=== PATIENT | male | born 1965 | race Caucasian/White ===

== ENCOUNTER 2018-05-03 10:32 | Emergency (ER) | payer BC, SELFPAY ==
[2018-05-03] VITALS (17 sets, daily range): BP systolic 126–144; BP diastolic 40–80; PULSE 48–68; RESP 9–22; TEMP 36.6–36.7; O2SAT 95–99
--- NOTE | 2018-05-03 11:04 | DI.REPORT_ITS ---
SYMPTOM/DIAGNOSIS: BLOATING DISTENSION FLAT AND UPRIGHT VIEWS ABDOMEN: There is gas scattered in small and large bowel without evidence of dilatation. There is no gastric dilatation. There is no evidence of free air. The visualized portions of the lung bases appear clear. IMPRESSION: No acute abnormality.
--- NOTE | 2018-05-03 11:04 | ED.GENADUL ---
Disposition Clinical Impression: Abdominal pain, not otherwise specified Disposition: HOME Condition: Good Instructions: Diabetic Gastroparesis (GEN) Additional Instructions: Return if you develop a fever, vomiting, worsening bloating, or any other concerns. As we discussed, may trial the use of Reglan, as needed for nausea and bloating. Please make an appointment to follow-up with Dr. Tobias in clinic in the next 2-3 weeks time. Return to the emergency department for any acute concerns. Continue all previously prescribed medications. Prescriptions: Metoclopramide HCl [Reglan] 10 mg PO BID PRN PRN #14 tablet PRN Reason: Nausea and bloating Medical Decision Making - Lab Data Laboratory Results - last 24 hr 05/03/18 05/03/18 11:20 11:20 WBC 5.47 RBC 4.41 L Hgb 13.8 Hct 40.5 MCV 91.8 MCH 31.3 MCHC 34.1 RDW 12.9 Plt Count 275 MPV 9.4 Immature Gran % 0.2 Neutrophils % 64.4 Lymphocytes % 26.1 Monocytes % 8.2 Eosinophils % 0.7 Basophils % 0.4 Absolute Neutrophils 3.52 Absolute Lymphocytes 1.43 Absolute Monocytes 0.45 Absolute Eosinophils 0.04 Absolute Basophils 0.02 Sodium 137 Potassium 4.2 Chloride 101 Carbon Dioxide 26.6 Anion Gap 9.4 BUN 18 Creatinine 1.13 Estimated GFR/1.73 m2 >= 60.00 Glucose 272 H Calcium 8.3 L Magnesium 1.7 L Total Bilirubin 0.7 AST 22 ALT 29 Alkaline Phosphatase 84 Troponin I < 0.02 Total Protein 7.0 Albumin 3.6 Lipase 77 Results reviewed for labs ordered during visit: Yes 05/03/18 11:06 Sinus bradycardia, rate of 53, QRS is narrow, there is no ST segment elevation present. - Radiology Data Radiology results: report reviewed, image reviewed - Medical Decision Making 52-year-old male presents with intermittent episodes of abdominal bloating and belching over weeks to months time. Not significantly worsened today but he felt that did merit evaluation. He arrives with temp of 36.7, blood pressure 143/57, soft abdomen. Hemoglobin A1c chronically elevated around 8. Differential diagnosis includes diabetic gastroparesis, ileus, partial small bowel obstruction. Screening laboratories, EKG, x-ray obtained and patient given Reglan for its promotility properties. Diagnostics: White blood cell count 5, hematocrit 40, platelets 275. Sodium 137, potassium 4.2, chloride 101, bicarb 26, BUN 18, creatinine 1.1, glucose 272, LFTs unremarkable, troponin negative, lipase 77 X-ray: No evidence of ileus or obstruction. No acute findings. Patient is improved. I will provide him a prescription for 10 Reglan tablets to be used if needed for nausea and bloating. Will ask him to follow-up with Dr. Tobias in clinic, & if symptoms persist, may consider referral to GI. Discussed home care as well as return precautions with the patient prior to discharge. History of Present Illness - General Stated complaint: GASTRO Time Seen by Provider: 05/03/18 10:35 Source: patient, RN notes reviewed Mode of arrival: ambulatory Limitations: no limitations - History of Present Illness Initial comments: 52-year-old male diabetic presents with months of intermittent episodes of abdominal distention, bloating, belching. Some mild dull, achy, nonradiating discomfort is mild to moderate today. He does not have vomiting, change to stool, fever. Seems to be brought on by food, slowly dissipates over time. No other exacerbating or of either defects. - Related Data Epinephrine [Epipen] 0.3 mg IM ONCE 01/01/13 Naproxen Sodium [Aleve] 1 cap PO PRN 01/01/13 [place], Insulin Disposable [Pen [place]] 1 each MC TID #100 ndl 09/10/13 Syringe-Needle,Insulin,0.5 ml [Ultra-Thin II] 1 each MC DAILY #100 syringe 09/10/13 Insulin Lispro [HumaLOG Syringe] 0 - 70 unit SQ DAILY #10 pen 04/08/15 Sildenafil [Viagra] 1 tab PO PRN #10 tab-cap 08/22/16 Lisinopril [Prinivil] 1 tab PO DAILY #90 tab 04/16/17 Simvastatin 1 tab PO DAILY #90 tab 04/16/17 Insulin Lispro [HumaLOG Syringe] 0 - 70 u SQ DAILY #5 pen 05/14/17 Blood Sugar Diagnostic [Freestyle Test Strips] 1 each MC DIRECTED #100 bottle 06/07/17 Omeprazole 20 mg PO DAILY #90 capsule. 09/03/17 Insulin Glargine [Lantus Vial] 70 unit SQ DAILY #3 vial 09/17/17 Furosemide [Lasix] 1 tab PO DAILY #90 tab 04/22/18 Metoclopramide HCl [Reglan] 10 mg PO BID PRN PRN #14 tablet 05/03/18 Allergies Allergy/AdvReac Type Severity Reaction Status Date / Time MIKEY WHITE FACED Allergy Intermediate HIVES, Uncoded 09/22/17 13:05 NUMBNESS, TINGLING Review of Systems Other: 8 systems reviewed, otherwise neg Past Medical History - Past Medical History Medical history: diabetes, hyperlipidemia, hypertension tetanus 2006 Surgical history: herniorraphy, other (knee) - Social History Alcohol use: occasionally Drug use: none General Exam - General Limitations: no limitations General appearance: alert, in no apparent distress - Head Head exam: Present: atraumatic, normocephalic - Eye Eye exam: Present: normal apperance - Neck Neck exam: Present: normal inspection, full ROM - Respiratory Respiratory exam: Present: normal lung sounds bilaterally. Absent: respiratory distress - Cardiovascular Cardiovascular Exam: Present: regular rate, normal rhythm - GI/Abdominal GI/Abdominal exam: Present: soft, tenderness, other (Mild tenderness without rebound or guarding. No tympany). Absent: distended - Extremities Exam Extremities exam: Present: normal inspection, normal capillary refill - Neurological Exam Neurological exam: Present: alert, oriented X3 - Psychiatric Psychiatric exam: Present: normal affect, normal mood - Skin Skin exam: Present: warm, dry, intact Course Vital Signs - 24 hr 05/03/18 10:38 Temperature 36.7 C Pulse 55 L Respiratory 14 Rate Blood Pressure 143/57 Pulse Oximetry 99
[2018-05-03] MEDS: Metoclopramide 10 MG TAB PO (11:25)
[2018-05-03 11:28] LABS: Abs Immature Grans 0.01 k/cumm (0.0-0.09); Absolute Basophil Count 0.02 k/cumm (0.0-0.2); Absolute Eosinophil Count 0.04 k/cumm (0.0-0.7); Absolute Lymphocyte Count 1.43 k/cumm (1.2-3.4); Absolute Monocyte Count 0.45 k/cumm (0.11-0.7); Absolute Neutrophil Count 3.52 k/cumm (1.2-6.7); Basophils % 0.4; Eosinophils % 0.7; HCT 40.5 % (40.0-50.0); HGB 13.8 g/dL (13.5-17.5); Immature Grans % 0.2; Lymphocytes % 26.1; Mean Corp. HGB Concentration 34.1 g/dL (32.0-36.0); Mean Corpuscular Hemoglobin 31.3 pg (27.0-33.0); Mean Corpuscular Volume 91.8 fL (80-95); Mean Platelet Volume 9.4 fL (8.0-11.0); Monocytes % 8.2; Neutrophils % 64.4; Platelet Count 275 x1000/uL (130-400); RBC 4.41 m/cumm (4.50-6.00); RBC Distribution Width 12.9 % (11.8-14.1); White Blood Cell Count 5.47 k/cumm (4.4-10.8)
--- NOTE | 2018-05-03 11:40 | DI.VRAD_ITS ---
EXAM: XR Abdomen, 2 Views EXAM DATE/TIME: 05/03/2018 11:05 AM CLINICAL HISTORY: 52 years old, male; Signs and symptoms; Bloating and other: Distention TECHNIQUE: Frontal view of the abdomen/pelvis with upright view of the abdomen. COMPARISON: CR - ABD FLAT UPRIGHT PA CHEST 2013-01-26 12:34 FINDINGS: Gastrointestinal tract: Bowel gas pattern is nonspecific. No ileus or obstruction. Intraperitoneal space: Normal. No free air. Bones/joints: Mild to moderate degenerative changes, lumbar spine. IMPRESSION: 1. No acute findings. 2. No obstruction. Dictated and Authenticated by: Clive Ponce MD. Ordering:LUIS ANGEL PETERS MD
[2018-05-03 11:46] LABS: ALT 29 U/L (12-78); AST 22 U/L (15-37); Albumin 3.6 g/dL (3.4-5.0); Alkaline Phosphatase 84 U/L (46-116); Anion Gap 9.4 mmol/L (3-11); BUN 18 mg/dL (7-18); Bilirubin, Total 0.7 mg/dL (0.2-1.0); CO2 26.6 mmol/L (21.0-32.0); CREATININE 1.13 mg/dL (0.70-1.30); Calcium 8.3 mg/dL (8.5-10.1); Chloride 101 mmol/L (98-107); Glucose 272 mg/dL (70-100); Lipase 77 U/L (73-393); Magnesium 1.7 mg/dL (1.8-2.4); Potassium 4.2 mmol/L (3.5-5.1); Sodium 137 mmol/L (136-145); Troponin I < 0.02 ng/mL (0.00-0.06)
== END 2018-05-03 12:30 | disposition home or self-care (01) ==
PROVIDERS: Emergency Provider Emergency Medicine; PCP Emergency Medicine
DX: R14.0 Abdominal distension (gaseous) (principal); R14.2 Eructation; R10.819 Abdominal tenderness, unspecified site; R00.1 Bradycardia, unspecified; E10.9 Type 1 diabetes mellitus without complications; I10 Essential (primary) hypertension
CPT/HCPCS: 36415; 80053; 83690; 93005; 99285; 74019; 83735; 84484; 85025; 93010; 99284

== ENCOUNTER → 2018-05-06 08:13 | Outpatient (CLI) | payer BC, SELFPAY ==
[2018-05-06 10:59] LABS: Anion Gap 9.2 mmol/L (3-11); BUN 14 mg/dL (7-18); CO2 25.8 mmol/L (21.0-32.0); CREATININE 1.08 mg/dL (0.70-1.30); Calcium 8.5 mg/dL (8.5-10.1); Chloride 104 mmol/L (98-107); Glucose 180 mg/dL (70-100); Potassium 4.5 mmol/L (3.5-5.1); Sodium 139 mmol/L (136-145)
[2018-05-06 11:37] LABS: Hemoglobin A1C 8.7 % (4.5-6.2)
== END ==
PROVIDERS: PCP Emergency Medicine; Visit Provider Emergency Medicine
DX: E10.39 Type 1 diabetes mellitus with other diabetic ophthalmic complication (principal)
CPT/HCPCS: 36415; 80048; 83036

== ENCOUNTER 2018-05-10 08:29 | Emergency (ER) | payer BC, SELFPAY ==
[2018-05-10 08:32] VITALS: BP 142/76; PULSE 50; RESP 16; TEMP 36.6; O2SAT 98
--- NOTE | 2018-05-10 08:37 | NUR.NOTE ---
Nursing Note: Naresh eyelids significantly swollen. Visual acuity: Naresh 20/25, Left 20/25, Right 20/30.
--- NOTE | 2018-05-10 08:42 | ED.GENADUL ---
Disposition Clinical Impression: Poison dipika Disposition: HOME Condition: Stable Instructions: Poison Dipika (ED) Additional Instructions: you can try over the counter steroid cream and also oral benadryl if symptoms significantly worsen or not improving next week you can start the prednisone prescription if you have severe eye pain or fevers or difficulty breathing return to the emergency department Prescriptions: PredniSONE [Deltasone] 20 mg PO DIRECTED 10 Days tab Medical Decision Making - Medical Decision Making pt here with what appears to be a rash typical of poison dipika on his arms and periorbital swelling given he wiped his face. No findings on exam to make orbital cellulitis or preseptal cellulitis indicated. will have him start benadryl and topical steroids, will give prescription for steroid taper if symptoms significantly worsen. Advised f/u with pcp and return precautions given - Differential Diagnosis poison dipika vs [place] vs [place] History of Present Illness - General Chief complaint: RashLesion Stated complaint: RASH Time Seen by Provider: 05/10/18 08:32 Source: patient Mode of arrival: ambulatory Limitations: no limitations - History of Present Illness Initial comments: 52 yo male comes in with concern for poison dipika. 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 He started to have itching and redness to both forearms and periorbital swelling yesterday which continued today so came here. Denies deep eye pain or fevers, sob. He has periorbital swelling without d/c and normal eye exam otherwise with full eomi without pain on movement and no deep eye pain, perrl. MD Complaint: periorbital swelling Onset/Timin -: days(s) Improves with: none Worsens with: none - Related Data Epinephrine [Epipen] 0.3 mg IM ONCE 01/01/13 Naproxen Sodium [Aleve] 1 cap PO PRN 01/01/13 [place], Insulin Disposable [Pen [place]] 1 each MC TID #100 ndl 09/10/13 Syringe-Needle,Insulin,0.5 ml [Ultra-Thin II] 1 each MC DAILY #100 syringe 09/10/13 Insulin Lispro [HumaLOG Syringe] 0 - 70 unit SQ DAILY #10 pen 04/08/15 Sildenafil [Viagra] 1 tab PO PRN #10 tab-cap 08/22/16 Lisinopril [Prinivil] 1 tab PO DAILY #90 tab 04/16/17 Simvastatin 1 tab PO DAILY #90 tab 04/16/17 Insulin Lispro [HumaLOG Syringe] 0 - 70 u SQ DAILY #5 pen 05/14/17 Blood Sugar Diagnostic [Freestyle Test Strips] 1 each MC DIRECTED #100 bottle 06/07/17 Omeprazole 20 mg PO DAILY #90 capsule. 09/03/17 Insulin Glargine [Lantus Vial] 70 unit SQ DAILY #3 vial 09/17/17 Furosemide [Lasix] 1 tab PO DAILY #90 tab 04/22/18 Metoclopramide HCl [Reglan] 10 mg PO BID PRN PRN #14 tablet 05/03/18 PredniSONE [Deltasone] 20 mg PO DIRECTED 10 Days tab 05/10/18 Allergies Allergy/AdvReac Type Severity Reaction Status Date / Time HORNET, WHITE FACED Allergy Intermediate HIVES, Uncoded 05/10/18 08:34 NUMBNESS, TINGLING Review of Systems Constitutional: denies: fever Eyes: denies: eye pain, vision change Respiratory: denies: shortness of breath Cardiovascular: denies: chest pain Gastrointestinal: denies: abdominal pain, nausea, vomiting Skin: rash Neurological: denies: headache Comment: All other systems reviewed and negative Past Medical History - Past Medical History Medical history: diabetes, hyperlipidemia, hypertension tetanus 2006 Surgical history: herniorraphy, other (knee) - Social History Alcohol use: occasionally Drug use: none General Exam - General Limitations: no limitations General appearance: alert, in no apparent distress - Head Head exam: Present: atraumatic - Eye Eye exam: Present: PERRL, EOMI, periorbital swelling. Absent: scleral icterus, conjunctival injection, periorbital tenderness - ENT ENT exam: Present: mucous membranes moist - Neck Neck exam: Present: normal inspection - Respiratory Respiratory exam: Absent: respiratory distress - Cardiovascular Cardiovascular Exam: Present: regular rate - Extremities Exam Extremities exam: Present: full ROM. Absent: tenderness - Neurological Exam Neurological exam: Present: alert, oriented X3, CN II-XII intact, normal gait - Psychiatric Psychiatric exam: Present: normal affect - Skin Skin exam: Present: warm, erythema, urticaria Course Vital Signs - 24 hr 05/10/18 08:32 Temperature 97.9 F Pulse 50 L Respiratory 16 Rate Blood Pressure 142/76 Pulse Oximetry 98
== END 2018-05-10 08:50 | disposition home or self-care (01) ==
PROVIDERS: Emergency Provider Emergency Medicine; PCP Emergency Medicine
DX: L25.5 Unspecified contact dermatitis due to plants, except food (principal)
CPT/HCPCS: 99283

== ENCOUNTER 2018-10-08 01:14 | Outpatient (CLI) | payer BC, SELFPAY ==
--- NOTE | 2018-10-08 07:01 | DI.US_ITS ---
SYMPTOM/DIAGNOSIS: EPIGASTRIC ABD PAIN, R10.13, R10.9 ABDOMEN ULTRASOUND: The exam was somewhat limited due to patient body habitus. The liver was suboptimally visualized due to necessity of scanning between the ribs. The liver is normal in size and echogenicity. No focal lesions are identified. There is no biliary dilatation. The gallbladder is unremarkable, without evidence of stones or wall thickening. The tail of the pancreas and IVC were not visualized. The aorta is normal in diameter. The spleen and kidneys are unremarkable. IMPRESSION: Somewhat limited exam. No abnormality is identified.
== END 2018-10-08 01:34 ==
PROVIDERS: PCP Emergency Medicine; Visit Provider Emergency Medicine
DX: R10.13 Epigastric pain (principal); R10.9 Unspecified abdominal pain
CPT/HCPCS: 76700

== ENCOUNTER 2018-11-10 08:00 | Outpatient (CLI) | payer BC, SELFPAY ==
[2018-11-10 14:06] LABS: HCT 39.8 % (40.0-50.0); HGB 13.6 g/dL (13.5-17.5); Mean Corp. HGB Concentration 34.2 g/dL (32.0-36.0); Mean Corpuscular Hemoglobin 31.1 pg (27.0-33.0); Mean Corpuscular Volume 91.1 fL (80-95); Mean Platelet Volume 10.3 fL (8.0-11.0); Platelet Count 328 x1000/uL (130-400); RBC 4.37 m/cumm (4.50-6.00); RBC Distribution Width 12.8 % (11.8-14.1)
[2018-11-10 14:20] LABS: ALT 37 U/L (12-78); AST 24 U/L (15-37); Albumin 3.6 g/dL (3.4-5.0); Alkaline Phosphatase 83 U/L (46-116); Amylase 57 U/L (25-115); Bilirubin, Direct 0.11 mg/dL (0.00-0.20); Bilirubin, Total 0.4 mg/dL (0.2-1.0); Lipase 124 U/L (73-393); TSH 2.34 uIU/mL (0.358-3.74); Total Protein 6.7 g/dL (6.4-8.2)
== END 2018-11-10 08:20 ==
PROVIDERS: PCP Emergency Medicine; Visit Provider Emergency Medicine
DX: R10.9 Unspecified abdominal pain (principal); E03.9 Hypothyroidism, unspecified
CPT/HCPCS: 36415; 80076; 83690; 85027; 82150; 84443

== ENCOUNTER 2019-09-19 14:30 | Emergency (ER) | payer BC, SELFPAY ==
[2019-09-19 14:41] VITALS: BP 149/60; PULSE 53; RESP 16; TEMP 36.6; O2SAT 97
--- NOTE | 2019-09-19 15:13 | W.ED.GENAD ---
Discharge Plan Disposition Patient Disposition: HOME Discharge Details Chief Complaint: Orthopedic Clinical Impression: Neck pain on left side Primary Care Provider: Clive Tobias ED Provider: Yayo Dasilva Home Meds and New Rx's Prescriptions: Continued Lantus U-100 Insulin 100 unit/mL solution 40 unit SC HS RF: 0 naproxen sodium [Aleve] 220 MG capsule 1 cap PO PRN RF: 0 (DME) insulin syringe-needle U-100 [Ultra-Thin II (Short) Ins Syr] 1 EACH syringe 1 ea Miscellaneous DAILY Qty: 100 RF: 6 sildenafil [Viagra] 100 MG tablet 1 tab PO PRN Qty: 10 RF: 5 (DME) blood-glucose meter [OneTouch Verio IQ Meter] misc See Dose Instructions .ROUTE .MEDSUPPLY Qty: 1 RF: 0 (DME) OneTouch Verio strip See Dose Instructions .ROUTE .MEDSUPPLY Qty: 400 RF: 4 (DME) lancets [OneTouch Delica Lancets] 30 gauge misc See Dose Instructions .ROUTE .MEDSUPPLY Qty: 400 RF: 4 omeprazole 20 mg capsule,delayed release(DR/EC) 20 mg PO DAILY Qty: 60 RF: 1 furosemide [Lasix] 40 mg tablet 40 mg PO DAILY Qty: 90 RF: 4 lisinopril 20 mg tablet 20 mg PO DAILY Qty: 90 RF: 3 simvastatin 40 mg tablet 40 mg PO DAILY Qty: 90 RF: 0 metoclopramide HCl [Reglan] 10 mg tablet 10 mg PO BID PRN PRN (Reason: Nausea and bloating) Qty: 30 RF: 1 insulin lispro [Humalog KwikPen Insulin] 100 unit/mL insulin pen 0 - 16 unit SC UD RF: 0 Discharge Instructions Instructions: Neck Pain (ED) Additional Instructions: Please take Aleve. Dose according to label - 1 tablet by mouth every 8-12 hours for pain. Rest your right arm and right neck. No heavy lifting until symptoms completely resolved. Please contact your primary care physician to arrange follow-up. Return to the ER for any worsening or new concerning symptoms. Referrals: Clive Tobias, [Primary Care Provider] - Discharge Data Discharge Date/Time-TO BE ENTERED AT DEPARTURE: 09/19/19 16:00 Medical Decision Making 15:25 --54-year-old male with history of type I diabetes, hypertension, here with intermittent right lateral upper back /shoulder pain over the past 1 week, worse with certain positions and movements of his right arm. Suspect musculoskeletal etiology but given multiple risk factors, consider ACS. Plan to check screening ECG and labs including troponin. --ECG was reviewed and interpreted by me: Sinus bradycardia 52 bpm, normal axis, no STEMI, nondiagnostic. 15:54 --Labs reviewed and nondiagnostic. Negative troponin. I suspect musculoskeletal etiology. Plan will be for patient to follow-up with his primary care physician. I have recommended he increase his dosing of Aleve and rest his arm over the next few days. Usual and customary discharge instructions were provided. HPI General Mode of arrival: ambulatory. Date/Time Provider Initiated Documentation: 09/19/19 14:47. Limitations to Documentation: no limitations. Information obtained by: patient. HPI Narrative: 54-year-old male with insulin-dependent diabetes here with chief complaint of right upper back/shoulder pain. Patient notes intermittent pain for the past 1 week. Pain does seem positional and increases when lifting his arm to perform overhead activities. Pain is moderate to severe when he experiences it. Pain feels sharp. No associated chest pain or shortness of breath. Pain improves with application of topical icy hot analgesic. 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 He also carries heavy loads on his right shoulder. He does not recall any specific traumatic injury. Related Data Home Medications Medication Instructions Recorded Confirmed naproxen sodium [Aleve] 1 cap PO PRN 01/01/13 09/19/19 insulin syringe-needle U-100 #100 syringe 09/10/13 04/10/19 [Ultra-Thin II (Short) Ins Syr] sildenafil [Viagra] 1 tab PO PRN #10 tab-cap 08/22/16 09/19/19 blood sugar diagnostic #400 each 12/26/18 04/10/19 blood-glucose meter #1 each 12/26/18 04/10/19 lancets 30 gauge #400 each 12/26/18 04/10/19 omeprazole 20 mg capsule,delayed 20 mg PO DAILY #60 cap 02/10/19 09/19/19 release insulin glargine 100 unit/mL 40 unit SC HS ml 04/10/19 09/19/19 subcutaneous solution furosemide 40 mg tablet 40 mg PO DAILY #90 tab 07/17/19 09/19/19 lisinopril 20 mg tablet 20 mg PO DAILY #90 tab 07/17/19 09/19/19 simvastatin 40 mg tablet 40 mg PO DAILY #90 tab 08/03/19 09/19/19 metoclopramide HCl 10 mg tablet 10 mg PO BID PRN PRN #30 tab 09/18/19 09/19/19 insulin lispro [Humalog KwikPen 0 - 16 unit SC UD 09/19/19 09/19/19 Insulin] Previous Rx's Medication Instructions Recorded blood sugar diagnostic #400 each 12/26/18 blood-glucose meter #1 each 12/26/18 lancets 30 gauge #400 each 12/26/18 omeprazole 20 mg capsule,delayed 20 mg PO DAILY #60 cap 02/10/19 release furosemide 40 mg tablet 40 mg PO DAILY #90 tab 07/17/19 lisinopril 20 mg tablet 20 mg PO DAILY #90 tab 07/17/19 simvastatin 40 mg tablet 40 mg PO DAILY #90 tab 08/03/19 metoclopramide HCl 10 mg tablet 10 mg PO BID PRN PRN #30 tab 09/18/19 Allergies Allergy/AdvReac Type Severity Reaction Status Date / Time HORNET, WHITE FACED Allergy Intermediate HIVES, Uncoded 09/19/19 14:45 NUMBNESS, TINGLING General Stated Complaint: Orthopedic CHUCK: 4 Review of Systems All systems reviewed & are unremarkable except as noted in HPI and below Constitutional Constitutional: Denies fever(s) Cardiovascular Cardiovascular: Denies chest pain and Denies dyspnea Respiratory Respiratory: Denies cough and Denies dyspnea Musculoskeletal Musculoskeletal: Reports as per HPI and Denies numbness Integumentary/Breasts Skin/Breast: Denies rash Neurologic Neurologic: Denies numbness [facility] Medical History Colon polyp, hyperplastic (Acute 04/18/16) repeat q 5years per [facility] Essential hypertension (Acute 08/04/13) Hyperlipidemia (Acute 02/05/13) Male erectile disorder (Acute 09/10/13) Non-proliferative diabetic retinopathy (Acute 01/04/14) 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 Brother Alcohol abuse Stroke Diabetes Hypertension Heart disease Hyperlipidemia Brother Hypertension Hyperlipidemia Maternal Grandfather , AGE 65 Lung cancer Paternal Grandfather , AGE 79 Stroke Maternal Grandmother , AGE 72 Diabetes Paternal Grandmother , AGE 98 No problems noted. Son No problems noted. Daughter No problems noted. Daughter Depression Social History Smoking/Tobacco Use Status: Never Alcohol Intake: current Alcohol Intake frequency: a few times a month Substance use type: does not use Household members: spouse Pets and animals: Yes Pets and animals: cat(s) Frequency: does not exercise Mounika/Rastafari: No preference Special mounika needs: No Do you feel safe at home: Yes Do you feel safe in your relationship?: Yes Exam Const General: cooperative and no acute distress HENMT Mouth: moist mucous membranes Eyes Conjunctivae: normal conjunctivae Sclera: normal sclerae Neck Neck: full ROM, trachea midline and supple Other: Minimal tenderness to deep palpation right posterior neck over trapezius Resp Auscultation: clear to auscultation bilaterally, no rales, no rhonchi and no wheezes Cardio Jugular venous pressure: no JVD Rate: regular rate and not tachycardic Rhythm: regular rhythm Heart Sounds: murmur systolic I/ Pulses: radial pulses present on the right 2+ GI Palpation: soft, not firm, no guarding, no masses, not rigid and nontender Back/Spine/Pelvis Cervical Spine: No cervical spinal tenderness Thoracic/Lumbar Spine: No thoracic spinal tenderness and No lumbar spinal tenderness Skin General skin exam: no rashes or lesions noted Neuro General: alert, awake, tone normal and other (Distal right upper extremity sensation and motor intact) Extrem Left upper extremity: shoulder/upper arm Details: abnormal ROM (Limited with with overhead extension, noted to be chronic) Psych Appearance: grossly normal Mental Status: mental status grossly normal Course Vital Signs Vital signs: Vital Signs Temperature 36.6 C 09/19/19 14:41 Pulse 53 L 09/19/19 14:41 Respiratory Rate 16 09/19/19 14:41 Blood Pressure 149/60 H 09/19/19 14:41 Pulse Oximetry 97 09/19/19 14:41 Temperature 36.6 C 09/19/19 14:41 Temperature Source Skin 09/19/19 14:41 Pulse 53 L 09/19/19 14:41 Respiratory Rate 16 09/19/19 14:41 Respiratory Effort 09/19/19 14:49 Blood Pressure 149/60 H 09/19/19 14:41 Blood Pressure Position Sitting 09/19/19 14:41 Pulse Oximetry 97 09/19/19 14:41 Oxygen Delivery Method Room Air 09/19/19 14:41 Oxygen Flow Rate 0 09/19/19 14:41 Comment 09/19/19 14:41
[2019-09-19 15:32] LABS: HCT 40.1 % (40.0-50.0); HGB 13.7 g/dL (13.5-17.5); Mean Corp. HGB Concentration 34.2 g/dL (32.0-36.0); Mean Corpuscular Hemoglobin 31.6 pg (27.0-33.0); Mean Corpuscular Volume 92.4 fL (80-95); Mean Platelet Volume 8.9 fL (8.0-11.0); Platelet Count 275 x1000/uL (130-400); RBC 4.34 m/cumm (4.50-6.00); RBC Distribution Width 12.9 % (11.8-14.1)
[2019-09-19 15:47] LABS: Anion Gap 8.5 mmol/L (3-11); BUN 17 mg/dL (7-18); CO2 28.5 mmol/L (21.0-32.0); CREATININE 0.93 mg/dL (0.70-1.30); Calcium 8.6 mg/dL (8.5-10.1); Chloride 106 mmol/L (98-107); Glucose 45 mg/dL (74-106); Potassium 3.6 mmol/L (3.5-5.1); Sodium 143 mmol/L (136-145); Troponin I < 0.05 ng/Ml (<0.06)
== END 2019-09-19 16:00 | disposition home or self-care (01) ==
PROVIDERS: Emergency Provider Student in an Organized Health Care Education/Training Program; PCP Emergency Medicine
DX: M54.2 Cervicalgia (principal); M25.511 Pain in right shoulder; I10 Essential (primary) hypertension; E10.39 Type 1 diabetes mellitus with other diabetic ophthalmic complication; E10.40 Type 1 diabetes mellitus with diabetic neuropathy, unspecified
CPT/HCPCS: 36415; 80048; 85027; 93005; 99283; 84484; 93010

== ENCOUNTER 2020-02-12 13:33 | Emergency (ER) | payer BC, SELFPAY ==
[2020-02-12 13:37] VITALS: BP 148/69; PULSE 66; RESP 16; TEMP 36.3; O2SAT 97
--- NOTE | 2020-02-12 14:13 | ED.GENADUL_ITS ---
Discharge Plan Disposition Patient Disposition: HOME Condition: Stable Discharge Details Chief Complaint: Abd Prob Clinical Impression: Abdominal pain, epigastric, Periumbilical hernia Primary Care Provider: Clive Tobias ED Provider: Eri Deutsch Home Meds and New Rx's Prescriptions: New sucralfate [Carafate] 1 gram tablet 1 gm PO TID Qty: 21 RF: 0 Continued (DME) insulin syringe-needle U-100 [Ultra-Thin II (Short) Ins Syr] 1 EACH syringe 1 ea Miscellaneous DAILY Qty: 100 RF: 6 sildenafil [Viagra] 100 MG tablet 1 tab PO PRN Qty: 10 RF: 5 (DME) blood-glucose meter [PicPrizesTouch Verio IQ Meter] misc See Dose Instructions .ROUTE .MEDSUPPLY Qty: 1 RF: 0 (DME) lancets [OneTouch Delica Lancets] 30 gauge misc See Dose Instructions .ROUTE .MEDSUPPLY Qty: 400 RF: 4 furosemide [Lasix] 40 mg tablet 40 mg PO DAILY Qty: 90 RF: 4 lisinopril 20 mg tablet 20 mg PO DAILY Qty: 90 RF: 3 Lantus U-100 Insulin 100 unit/mL solution 40 unit SC HS Qty: 30 RF: 3 omeprazole 20 mg capsule,delayed release(DR/EC) 20 mg PO DAILY Qty: 90 RF: 1 (DME) blood sugar diagnostic [OneTouch Verio test strips] Strip See Dose Instructions .ROUTE .MEDSUPPLY Qty: 400 RF: 4 simvastatin 40 mg tablet 40 mg PO DAILY Qty: 90 RF: 3 insulin lispro [Humalog KwikPen Insulin] 100 unit/mL insulin pen 0 - 16 unit SC UD RF: 0 Discontinued naproxen sodium [Aleve] 220 MG capsule 1 cap PO PRN RF: 0 Discharge Instructions Instructions: Epigastric Pain (ED) Additional Instructions: Continue your daily omeprazole. Use Carafate in addition to omeprazole as discussed for possible gastritis or stomach ulcer. Follow-up with surgeon for gastric concerns as well as periumbilical hernia concern. Please restart your daily aspirin. Please fill and restart your blood pressure medication Have outpatient stress test as discussed. We were able to make you an appointment for 15 February at 215 for a stress test. Return immediately for difficulty breathing associated with chest pain, shortness of breath, epigastric pain, dizziness, weakness, sweating, nausea or alarming symptoms as discussed. Return for abdominal pain which is worsening or alarming as discussed. Recheck with PCP. Return for any worsening or concerns if needed sooner Referrals: Michelle Booth MD [ [facility] STAFF PHYSICIAN] - Discharge Data Discharge Date/Time-TO BE ENTERED AT DEPARTURE: 02/12/20 15:51 Medical Decision Making <SAMMY Bernal - Last Filed: 02/12/20 16:05> This is a 54-year-old patient presenting to the emergency room for complaints of intermittent abdominal pain. Patient reports that for several years to months he has had mild intermittent abdominal pain. Patient does report pain is noted in the periumbilical and epigastric areas. Patient reports in the last 2 weeks pain has been more frequent. Noting pain daily. Patient does report today he is pain-free and feeling improved. Patient denies shortness of breath, difficulty breathing or chest pain at this time. Patient denies diaphoresis, dizziness, nausea, vomiting, headaches associated. Patient reports he notes epigastric pain early immediately after eating for the last 2 weeks. Patient does take omeprazole. Patient points to his periumbilical area has an area of swelling he has noted intermittently which can be associated with mild discomfort. Patient concerned with the possibility of hernia. Denies any bowel change or urinary difficulty. Patient also reports mild exacerbation component of pain when exerting himself yesterday. Specifically he reports he was carrying something heavy up a hill and he noted very mild shortness of breath and epigastric discomfort. Patient denied associated chest pain, diaphoresis or dizziness. patient reports pain relieved after resting. Patient denies back pain. Patient does report sensation of abdominal bloating in the last several months. Patient did speak with his PCP regarding the symptoms on a telemetry visit 1 month ago. They did discuss outpatient follow-up with GI and consideration of CT scan. Patient reports due to increasing pain frequency in the last 2 weeks he was seeking evaluation at his 's recommendation. Patient again at this time is pain-free. Patient does report he is been noncompliant with his blood pressure medications for the last 5 days. He does have a prescription at the pharmacy which she has not yet filled. Patient does report daily use of Naprosyn for the last 2 years. On exam patient is a well-appearing nontoxic mildly overweight patient. Vital signs revealed mild hypertension at 148/69. Afebrile, no increase in respiratory effort or tachypnea noted. O2 saturations 97%. Patient is pain- free at this time. Patient's breath sounds are clear diffusely. Patient has a subtle systolic murmur present. Patient has a very benign abdominal exam. No focal tenderness. A small periumbilical defect is present consistent with umbilical hernia with no obvious protrusion or incarceration at this time. Nontender. Differential diagnosis for this patient includes epigastric pain after eating concern for possible gastritis or gastric ulcer, umbilical hernia, hiatal hernia. patient has clear description of pain after eating. Patient does report a reflux history. Patient is currently taking omeprazole. We will plan to place patient on follow-up list with surgery for concern of possible gas tritis, PUD and umbilical hernia. Will recommend continuation of omeprazole. Will add Carafate. patient agrees with plan of outpatient follow-up. Did discuss alarming signs and symptoms of hernia for which patient should have immediate return. Patient is agreeable to this plan of care. Patient clearly presents to the emergency room for concern of umbilical hernia concern today however differential diagnosis also includes atypical anginal presentation as he is a type I diabetic has mild hypertension, no history of hyperlipidemia, previous PCP put patient on hyper lipidemia medications due to his history of diabetes. We will plan to check EKG. Patient is pain-free at this time, in no apparent distress, has no difficulty breathing, complaints of chest pain or shortness of breath today. patient has nothing to indicate acute ACS at this time. Patient reports he has been able to preform exertional activities without difficulty or discontinuation of activity. However given patient's description of mild shortness of breath with exertion uphill associated with mild epigastric discomfort must consider angina as a possible etiology although less likely etiology of his complaints given his history. Patient has been noncompliant with his hypertensive medications. I did recommend he restart these. Patient does report he stopped taking his baby aspirin which has been previously recommended to him. I recommended he restart aspirin daily. I did recommend stress testing as patient has not had stress testing in the past. Will order outpatient stress test to be followed up with his PCP. EKG reviewed with Dr. Dasilva. No acute change noted. Please see his interpretation of EKG. Nothing to indicate ischemia at this time. Patient is mildly bradycardic. Patient reports he has been bradycardic in the past, this is known to him and this is his baseline. Again patient has no ACS symptoms at this time. Patient giving very strict return precautions. Patient reports his understanding and agrees with this plan of care. We will defer any CT imaging of patient's abdomen at this time as he has benign abdominal exam. Dr. Yayo Dasilva also evaluated the patient at the bedside. Discussed his symptoms. Did bedside ultrasound which was somewhat limited. Please see his note. Strict return precautions discussed. Patient agrees with outpatient follow-up plan of care. Patient reports his understanding of plan of care. The patient was stable and requested discharge. Prior to discharge, my usual and customary return precautions were reviewed with the patient - this included follow-up instructions and reasons to return to the Emergency Department if conditions worsens, does not improve as expected, or other new concerns arise. <Yayo Dasilva MD - Last Filed: 02/19/20 14:51> Patient seen, examined, and discussed with SAMMY Perez. Small umbilical muscular wall defect with no current herniation. I did review prior abdominal ultrasound dated 10/08/2018 where abdominal aorta was noted to be normal. I agree with treatment plan as discussed/documented. Suspect intermittent umbilical hernia. Will refer to general surgery. I did speak with the patient's PCP who is in agreement with surgical follow-up. ECG Data Attestation: I personally reviewed and interpreted this ECG (s) as follows: (Sinus bradycardia 51 bpm, normal axis, no ischemic findings, nondiagnostic with no significant change compared to 05/03/2018) Prior ECG tracings: available for review HPI <SAMMY Bernal - Last Filed: 02/12/20 16:05> General Date/Time Provider Initiated Documentation: 02/12/20 13:35 . HPI Narrative: Is a 54-year-old patient presenting to the emergency room for complaints of intermittent abdominal pain. Patient reports several months of abdominal pain. Patient reports in the last 2 weeks more frequent and slightly more notable abdominal pain. Patient reports at this time he is pain-free. Patient reports the pain is worse with heavy exertion. 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 Patient does note that when he has increased abdominal pain he does note some shortness of breath. Patient denies headache or dizziness. Patient denies fever or chills. Patient denies bowel changes, diarrhea or constipation. Well formed bowel movements. Patient denies dysuria, urgency or frequency of urination. Denies hematuria. Patient denies associated back pain. Patient describes pain as periumbilical with a small area of intermittent swelling noted which he believes is likely due to hernia. Patient also describes some epigastric discomfort. Patient does currently take omeprazole however he did try to discontinue his omeprazole and noted a significant rebound reflux then begin taking his medication again. Of note patient does have Naprosyn listed on his daily medications which he reports has been taking twice daily for years for joint pain. Patient is a type I diabetic. Compliant with his daily medications. Has spoken with his PCP regarding his complaints. PCP did recommend CT scan. Patient did have a telemetry visit with his PCP approximately 1 month ago and they discussed having a CT scan. Patient seeking evaluation due to complaints of moderate pain and has noted pain for the last 2 weeks. Patient does report some postprandial pain for the last few weeks. He does report this intermittently for several months occurring in waves, will resolve for some time then returns. Patient denies any pain today. Does report feeling improved at this time. Related Data Home Medications Medication Instructions Recorded Confirmed insulin syringe-needle U-100 #100 syringe 09/10/13 04/10/19 [Ultra-Thin II (Short) Ins Syr] sildenafil [Viagra] 1 tab PO PRN #10 tab-cap 08/22/16 02/12/20 blood-glucose meter #1 each 12/26/18 04/10/19 lancets 30 gauge #400 each 12/26/18 04/10/19 furosemide 40 mg tablet 40 mg PO DAILY #90 tab 07/17/19 02/12/20 lisinopril 20 mg tablet 20 mg PO DAILY #90 tab 07/17/19 02/12/20 insulin lispro [Humalog KwikPen 0 - 16 unit SC UD 09/19/19 02/12/20 Insulin] insulin glargine 100 unit/mL 40 unit SC HS #30 ml 10/23/19 02/12/20 subcutaneous solution omeprazole 20 mg capsule,delayed 20 mg PO DAILY #90 cap 11/05/19 02/12/20 release blood sugar diagnostic #400 each 01/08/20 simvastatin 40 mg tablet 40 mg PO DAILY #90 tab 02/10/20 02/12/20 sucralfate [Carafate] 1 gm PO TID #21 tab 02/12/20 Previous Rx's Medication Instructions Recorded blood-glucose meter #1 each 12/26/18 lancets 30 gauge #400 each 12/26/18 furosemide 40 mg tablet 40 mg PO DAILY #90 tab 07/17/19 lisinopril 20 mg tablet 20 mg PO DAILY #90 tab 07/17/19 insulin glargine 100 unit/mL 40 unit SC HS #30 ml 10/23/19 subcutaneous solution omeprazole 20 mg capsule,delayed 20 mg PO DAILY #90 cap 11/05/19 release blood sugar diagnostic #400 each 01/08/20 simvastatin 40 mg tablet 40 mg PO DAILY #90 tab 02/10/20 sucralfate [Carafate] 1 gm PO TID #21 tab 02/12/20 Allergies Allergy/AdvReac Type Severity Reaction Status Date / Time HORNET, WHITE FACED Allergy Intermediate HIVES, Uncoded 02/12/20 13:42 NUMBNESS, TINGLING General Stated Complaint: Abd Prob CHUCK: 3 Review of Systems <SAMMY Bernal - Last Filed: 02/12/20 16:05> All systems reviewed & are unremarkable except as noted in HPI and below PFSH <SAMMY Bernal - Last Filed: 02/12/20 16:05> Medical History Colon polyp, hyperplastic (Acute 04/18/16) repeat q 5years per [facility] [place] Essential hypertension (Acute 08/04/13) Hyperlipidemia (Acute 02/05/13) Male erectile disorder (Acute 09/10/13) Non-proliferative diabetic retinopathy (Acute 01/04/14) 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 Well hydrated. Alert and oriented. EYES: General normal appearance. Alignment normal. Eyelids normal. Conjunctiva normal. Sclera normal. PERRL. NECK: Normal visual inspection. FROM. No lymphadenopathy. Trachea midline. No Midline tenderness. CHEST: Normal insepection of the chest. RESP: Normal respiratory effort. Speaking full sentences. No cough. No wheezing. No retractions. Clear to auscaltation. Breath sound equal and present bilaterally. CARDIO: No JVD. Normal PMI. Regular Rate. Regular Rhythm. Normal peripheral pulses. Subtle mid systolic murmur noted. GI: Normal inspection of abdomen. No distension. Soft. Nontender. Bowel sounds present in all 4 quadrants. No rebound. No gaurding. Patient has a small umbilical defect palpable. Nontender at this time. MUSCULOSKELETAL: Normal Gait. FROM of all extremities. Distal neurovascularly intact. Sensation intact distally. SKIN: Normal. Dry. No rashes. NEURO: Alert and awake. Speech clear. PSYCH: Normal affect. Cooperative. Course <SAMMY Bernal - Last Filed: 02/12/20 16:05> Vital Signs Vital signs: Vital Signs Temperature 36.3 C L 02/12/20 13:37 Pulse 66 02/12/20 13:37 Respiratory Rate 16 02/12/20 13:37 Blood Pressure 148/69 H 02/12/20 13:37 Pulse Oximetry 97 02/12/20 13:37 Temperature 36.3 C L 02/12/20 13:37 Temperature Source Skin 02/12/20 13:37 Pulse 66 02/12/20 13:37 Respiratory Rate 16 02/12/20 13:37 Respiratory Effort 02/12/20 13:41 Blood Pressure 148/69 H 02/12/20 13:37 Blood Pressure Position Sitting 02/12/20 13:37 Pulse Oximetry 97 02/12/20 13:37 Oxygen Delivery Method Room Air 02/12/20 13:37 Oxygen Flow Rate 0 02/12/20 13:37 Pain Level 5 02/12/20 14:06
[2020-02-12 15:52] VITALS: BP 148/69; PULSE 66; RESP 16; TEMP 36.3; O2SAT 97
--- NOTE | 2020-02-12 23:27 | NUR.NOTE ---
Nursing Note: SENT REFERAL TO [facility] SURG[facility] 02/12/20
== END 2020-02-12 15:51 | disposition home or self-care (01) ==
PROVIDERS: Emergency Provider Physician Assistant; PCP Emergency Medicine
DX: K42.9 Umbilical hernia without obstruction or gangrene (principal); R10.13 Epigastric pain; I10 Essential (primary) hypertension; Z79.1 Long term (current) use of non-steroidal anti-inflammatories (NSAID); E10.9 Type 1 diabetes mellitus without complications
CPT/HCPCS: 93005; 99283; 93010; 99284

== ENCOUNTER 2020-02-23 01:37 | Outpatient (CLI) | payer BC, SELFPAY ==
--- NOTE | 2020-02-23 11:00 | ETT_ITS ---
APPROVED REPORT Exam: Exercise Treadmill Patient Location: Out-Patient Room/Bed: Stress Nurse: Nena Aguirre RN BMI: 34.29 Baseline Rhythm: First Degree Heart Block--VA 0.21, Abnormal R wave Progression--Early Transition. Indications: Patient testing today for further risk stratification. He reports SOB with exertion, no other associated symptoms. Medical History Medical History: GERD. Cardiac Medications: Furosemide, Lisinopril, Simvastatin, Sildenafil. Allergies: Hornets. Cardiac Risk Factors: FHX of CAD, HTN, Diabetes. Previous Cardiac Procedures: None. Pretest Chest Pain Characteristics: None Exercise History: Physically active Physical Disabilities: None Lung Sounds: Clear to auscultation Heart Sounds: Regular Stress Test Details Test: Exercise stress testing was performed using a Vincenzo protocol. Rest Stress HR Resting HR Supine: 56 bpm Max Heart Rate (APMHR): 164 bpm Resting HR Standin bpm Target HR (85% APMHR): 139 bpm Max HR Achieved: 174 bpm % of APMHR: 106 HR response to stress: Normal HR response to stress Comment: Recovery heart rates remained in the 90's at 18 minutes of recovery. BP Resting BP Supine: 178/80 mmHg Resting BP Standin/82 mmHg Max BP: 240/72 mmHg BP response to stress: Abnormal hypertensive response to stress. ECG Resting ECG: First Degree Heart Block--VA 0.21, Abnormal R wave Progression--Early Transition. Stress ECG: Sinus Tachycardia ST Change: Moderately positive Recovery ST Change: Downsloping ST depression Lead(s): II, III, aVF, V3, V4, V5, V6 Recovery Arrhythmia: None Clinical Reason for Termination: Fatigue Stress Symptoms: None Exercise duration: 9 min13 sec Highest Stage Reached: Stage 4: 4.2 mph at 16% grade. Exercise capacity: 10.50 METs Functional Capacity: Above average capacity Stress ECG Conclusion 1. Patient exercised on the Vincenzo protocol and completed a workload of 10.5 METS. He achieved greate r than 100% of predicted heart rate for age 2. Normal heart rate response to exercise 3. Hypertensive blood pressure response to exercise 4. Electrocardiographically consistent with myocardial ischemia. There was approximately 2 to [address] depression noted in the inferior and anterolateral leads which in recovery became downsloping. The EKG changes in recovery gradually improved by iminute 10 but did not really return to baseline 5. There were no significant dysrhythmias 6. Shepherd treadmill score is -3.5, moderate risk Stress Test Summary STAGE Time (mins) Speed (mph) Grade (%) HR BP SYMPTOMS METS Supine 56 178/80 Standing 63 180/82 1 3 1.7 10 124 190/90 4.6 2 6 2.5 12 150 196/90 7 3 9 3.4 14 169 10.2 1 min recovery 148 218/70 3 min recovery 107 240/72 6 min recovery 99 220/74 9 min recovery 96 188/78 12 min recovery 91 176/80 15 min recovery 94 168/82 18 min recovery 92 170/80
== END 2020-02-23 01:57 ==
PROVIDERS: PCP Emergency Medicine; Visit Provider Nurse Practitioner
DX: R06.02 Shortness of breath (principal); R53.83 Other fatigue; I10 Essential (primary) hypertension; K21.9 Gastro-esophageal reflux disease without esophagitis; Z82.49 Family history of ischemic heart disease and other diseases of the circulatory system
CPT/HCPCS: 93017

== ENCOUNTER 2020-04-02 07:20 | Emergency (ER) | payer BC, SELFPAY ==
[2020-04-02 07:26] VITALS: BP 158/81; PULSE 54; RESP 16; TEMP 36.7; O2SAT 97
--- NOTE | 2020-04-02 07:58 | ED.GENADUL_ITS ---
Discharge Plan Disposition Patient Disposition: HOME Condition: Good Discharge Details Chief Complaint: RashLesion Clinical Impression: Contact dermatitis, Poison dipika Primary Care Provider: Clive Tobias ED Provider: Brijesh Gastelum Home Meds and New Rx's Prescriptions: New prednisone 20 mg tablet 20 mg PO DAILY Qty: 42 RF: 0 hydrocortisone 2.5 % cream 1 applic TP BID PRNQty: 20 RF: 0 Continued (DME) insulin syringe-needle U-100 [Ultra-Thin II (Short) Ins Syr] 1 EACH syringe 1 ea Miscellaneous DAILY Qty: 100 RF: 6 sildenafil [Viagra] 100 MG tablet 1 tab PO PRN Qty: 10 RF: 5 (DME) blood-glucose meter [Curiouslyuch Verio IQ Meter] misc See Dose Instructions .ROUTE .MEDSUPPLY Qty: 1 RF: 0 (DME) lancets [AvidBiologicsTouch Delica Lancets] 30 gauge misc See Dose Instructions .ROUTE .MEDSUPPLY Qty: 400 RF: 4 furosemide [Lasix] 40 mg tablet 40 mg PO DAILY Qty: 90 RF: 4 lisinopril 20 mg tablet 20 mg PO DAILY Qty: 90 RF: 3 Lantus U-100 Insulin 100 unit/mL solution 40 unit SC HS Qty: 30 RF: 3 omeprazole 20 mg capsule,delayed release(DR/EC) 20 mg PO DAILY Qty: 90 RF: 1 (DME) OneTouch Verio test strips Strip See Dose Instructions .ROUTE .MEDSUPPLY Qty: 400 RF: 4 simvastatin 40 mg tablet 40 mg PO DAILY Qty: 90 RF: 3 insulin lispro [Humalog KwikPen Insulin] 100 unit/mL insulin pen 15 unit SC TID Qty: 15 RF: 12 sucralfate [Carafate] 1 gram tablet 1 gm PO TID Qty: 21 RF: 0 Discharge Instructions Instructions: Poison Dipika (ED) Additional Instructions: You have poison dipika related dermatitis. He will require steroids to get your symptoms better. Please take the steroid pill for 21 days as directed on the prescription. Use the topical steroid cream as an adjunct to your treatment on using small amounts words particularly bad. Do not use it all over your body for the entire rash. As we discussed together the steroids will certainly make your sugars higher and harder to control. Please do your very best to avoid any carbs, sugary foods, or foods with significant sugars in general while you are on the steroids. Additionally steroids can cause irritation to your stomach, please make sure that you are avoiding any spicy foods, ibuprofen, naproxen. If you notice any dark tarry stools please stop taking steroids immediately, would be very reasonable to take your prescribed Carafate or an cglq-dqr-tsteyth Pepto-Bismol or Maalox. If you notice any redness, fevers or chills this would be concerning for infection and return immediately for reevaluation. If you notice any worsening of your symptoms, or any new symptoms such as vomiting, diarrhea, fever, chills, shortness of breath, chest pain, numbness, weakness, or fainting , please return immediately to the emergency department for reevaluation. Please follow up with your primary care provider as soon as possible for reassessment and reevaluation. As always, it was a pleasure participating in your medical care today. Referrals: Clive Tobias, [Primary Care Provider] - Medical Decision Making This is a pleasant 54-year-old male with type 1 diabetes who presents today for dermatitis secondary to plant contact. 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 He did not wash off at that time, later he noticed a significant rash on his arms, worse on the right than the left, eventually it spread to his face where he had been rubbing his face. Over the last few days he has been taking some [id number]-[id number] creams, however these have not resolved the symptoms. They have slightly improved the itch that is all. He describes the rash as itching and irritating. He denies any new medications, antiepileptics, lesions in his mouth, or other complaints. He denies fever or chills. He denies any other symptoms at this time. Exam demonstrates mild rash over the majority of the patient's right upper extremity as well as rash present on the patient's left upper extremity with small amount noted over his face. No other concerning red flags of lesions in the mouth, negative Nikolsky sign. Signs and symptoms clinically consistent with contact dermatitis. Patient's ring was mobile on his left ring finger, did offer to remove it here, however he states that he would take it off at home as a precaution in case any swelling gets worse. Because of the notable surface area of dermatitis I do not feel that he would be a candidate for steroid cream as a primary treatment modality. We will give a 3-week tapered steroid dose per recommendations for poison dipika contact dermatitis. We will give a topical steroid only to be used sparingly in the areas of particular severity on the forearm. The patient has a type I diabetic and we had a long discussion about the importance of closely monitoring his sugars, avoiding carbs, sugary foods and sweets. Also discussed the importance of maintaining a mild bland diet and signs and symptoms to look for for gastric irritation from the steroids as well as the importance of avoiding NSAIDs. Discussed red flags for which she should be aware of to immediately return. I have extensively reviewed the treatment plan and discharge instructions with the patient. I have addressed all patient concerns at this time. The patient was made aware of what symptoms to monitor for that would warrant a return to the emergency department. Discussed the plan with the patient, they demonstrate verbal understanding and agreement with our assessment and plan at this time. HPI General Date/Time Provider Initiated Documentation: 04/02/20 07:58 . HPI Narrative: This is a pleasant 54-year-old male with type 1 diabetes who presents today for dermatitis secondary to plant contact. 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 He did not wash off at that time, later he noticed a significant ra sh on his arms, worse on the right than the left, eventually it spread to his face where he had been rubbing his face. Over the last few days he has been taking some ctwp-[id number] creams, however these have not resolved the symptoms. They have slightly improved the itch that is all. He describes the rash as itching and irritating. He denies any new medications, antiepileptics, lesions in his mouth, or other complaints. He denies fever or chills. He denies any other symptoms at this time. Review of systems is negative for nausea, vomiting, diarrhea, chest pain, shortness of breath, vision changes, numbness tingling or weakness, hematuria, hematochezia, or melena. Related Data Home Medications Medication Instructions Recorded Confirmed insulin syringe-needle U-100 #100 syringe 09/10/13 04/02/20 [Ultra-Thin II (Short) Ins Syr] sildenafil [Viagra] 1 tab PO PRN #10 tab-cap 08/22/16 04/02/20 blood-glucose meter #1 each 12/26/18 04/02/20 lancets 30 gauge #400 each 12/26/18 04/02/20 furosemide 40 mg tablet 40 mg PO DAILY #90 tab 07/17/19 04/02/20 lisinopril 20 mg tablet 20 mg PO DAILY #90 tab 07/17/19 04/02/20 insulin glargine 100 unit/mL 40 unit SC HS #30 ml 10/23/19 04/02/20 subcutaneous solution omeprazole 20 mg capsule,delayed 20 mg PO DAILY #90 cap 11/05/19 04/02/20 release blood sugar diagnostic #400 each 01/08/20 04/02/20 simvastatin 40 mg tablet 40 mg PO DAILY #90 tab 02/10/20 04/02/20 sucralfate [Carafate] 1 gm PO TID #21 tab 02/12/20 04/02/20 insulin lispro 100 unit/mL 15 unit SC TID #15 ml 03/16/20 04/02/20 subcutaneous pen hydrocortisone 1 applic TP BID PRN #20 gm 04/02/20 prednisone 20 mg PO DAILY #42 tab 04/02/20 Previous Rx's Medication Instructions Recorded blood-glucose meter #1 each 12/26/18 lancets 30 gauge #400 each 12/26/18 furosemide 40 mg tablet 40 mg PO DAILY #90 tab 07/17/19 lisinopril 20 mg tablet 20 mg PO DAILY #90 tab 07/17/19 insulin glargine 100 unit/mL 40 unit SC HS #30 ml 10/23/19 subcutaneous solution omeprazole 20 mg capsule,delayed 20 mg PO DAILY #90 cap 11/05/19 release blood sugar diagnostic #400 each 01/08/20 simvastatin 40 mg tablet 40 mg PO DAILY #90 tab 02/10/20 sucralfate [Carafate] 1 gm PO TID #21 tab 02/12/20 insulin lispro 100 unit/mL 15 unit SC TID #15 ml 03/16/20 subcutaneous pen hydrocortisone 1 applic TP BID PRN #20 gm 04/02/20 prednisone 20 mg PO DAILY #42 tab 04/02/20 Allergies Allergy/AdvReac Type Severity Reaction Status Date / Time CHAGO JENSEN FACED Allergy Intermediate HIVES, Uncoded 04/02/20 07:34 NUMBNESS, TINGLING General Stated Complaint: RashLesion CHUCK: 3 Review of Systems All systems reviewed & are unremarkable except as noted in HPI and below [facility] Medical History Colon polyp, hyperplastic (Acute 04/18/16) repeat q 5years per [facility] [place] Essential hypertension (Acute 08/04/13) Hyperlipidemia (Acute 02/05/13) Male erectile disorder (Acute 09/10/13) Non-proliferative diabetic retinopathy (Acute 01/04/14) Right shoulder pain (Acute) 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 Brother Alcohol abuse Stroke Diabetes Hypertension Heart disease Hyperlipidemia Brother Hypertension Hyperlipidemia Maternal Grandfather , AGE 65 Lung cancer Paternal Grandfather , AGE 79 Stroke Maternal Grandmother , AGE 72 Diabetes Paternal Grandmother , AGE 98 No problems noted. Son No problems noted. Daughter No problems noted. Daughter Depression Social History Smoking/Tobacco Use Status: Never Alcohol Intake: current Alcohol Intake frequency: a few times a week Substance use type: does not use Household members: spouse Pets and animals: Yes Pets and animals: cat(s) Frequency: does not exercise Mounika/Scientology: No preference Special mounika needs: No Do you feel safe at home: Yes Do you feel safe in your relationship?: Yes Exam Narrative Exam Narrative: 1.Const: Well-nourished, Well-developed, appearing stated age 2.Eyes: PERRL, no conjunctival injection, and symmetrical lids. 3.ENT: Atraumatic external nose and ears. Moist MM. Neck: Symmetric, trachea midline, No thyromegaly. 4.CVS: +S1/S2, No murmurs or gallops. Peripheral pulses 2+ and equal in all extremities. Brisk capillary refill in all extremities. 5.RESP: Unlabored respiratory effort. Clear to auscultation bilaterally. No wheezes rales or rhonchi 6.GI: Soft, Nontender/Nondistended, No hepatosplenomegaly. No guarding or rebound. 7.MSK: Normocephalic/Atraumatic, Extremities w/o deformity or ttp No cyanosis or clubbing, Normal movement of all extremities 8.Skin: Patient's skin on his arms, primarily the right arm demonstrates notable contact dermatitis clinically consistent with exposure to likely poison dipika. Mild weeping over the forearm in the area of exposure. No significant redness, no atypical asymmetric warmth, no evidence of cellulitis. Mild swelling in the right hand because of this, minimal swelling in the left hand. Patient does have a ring on his ring finger on the left hand, there is no evidence of vascular compromise. Ring is movable. A very minimal amount of a similar contact dermatitis is noted on the patient's face, no evidence of conjunctivitis, no significant rash on the chest back legs. Negative Nikolsky sign. No large vesicles or bulla. No palpable purpura. No oral lesions. No mucosal lesions. No evidence of severe cellulitis. No evidence of vaccine preventable rash. 9.Neuro: pediatrician/medical doctor II-XII grossly intact. Sensation grossly intact, no focal neurologic deficits. 10.Psych: (AAO) x3. Appropriate mood and affect Course Vital Signs Vital signs: Vital Signs Temperature 36.7 C 04/02/20 07:26 Pulse 54 L 04/02/20 07:26 Respiratory Rate 16 04/02/20 07:26 Blood Pressure 158/81 H 04/02/20 07:26 Pulse Oximetry 97 04/02/20 07:26 Temperature 36.7 C 04/02/20 07:26 Temperature Source Temporal Artery Scan 04/02/20 07:26 Pulse 54 L 04/02/20 07:26 Respiratory Rate 16 04/02/20 07:26 Respiratory Effort Non-Labored 04/02/20 07:32 Blood Pressure 158/81 H 04/02/20 07:26 Blood Pressure Position Sitting 04/02/20 07:26 Pulse Oximetry 97 04/02/20 07:26 Oxygen Delivery Method Room Air 04/02/20 07:26 Oxygen Flow Rate 0 04/02/20 07:26 Pain Level 3 04/02/20 07:26
[2020-04-02 08:10] VITALS: BP 158/81; PULSE 54; RESP 16; TEMP 36.7; O2SAT 97
== END 2020-04-02 08:10 | disposition home or self-care (01) ==
PROVIDERS: Emergency Provider Student in an Organized Health Care Education/Training Program; PCP Emergency Medicine
DX: L23.7 Allergic contact dermatitis due to plants, except food (principal); E10.3299 Type 1 diabetes mellitus with mild nonproliferative diabetic retinopathy without macular edema, unspecified eye; I10 Essential (primary) hypertension
CPT/HCPCS: 99283

== ENCOUNTER 2020-06-17 17:00 | Outpatient (CLI) | payer BC, SELFPAY ==
--- NOTE | 2020-06-17 17:00 | RT.EKG_ITS ---
APPROVED REPORT Exam: Resting ECG Patient Location: O HR:59 bpm ECG Measurements Heart Rate 59 AXIS AR 211 P 67 QRSd 75 QRS 35 QT 413 T 29 QTc 408 Conclusion Gender not entered, assumed to be male for purpose of ECG interpretation Sinus bradycardia...rate< 60 Prolonged AR interval...AR >210, V-rate 50- 90
== END 2020-06-17 17:20 ==
PROVIDERS: PCP Emergency Medicine; Visit Provider Emergency Medicine
DX: I10 Essential (primary) hypertension (principal); R00.1 Bradycardia, unspecified

== ENCOUNTER 2020-06-24 01:45 | Outpatient (CLI) | payer BC, SELFPAY ==
--- NOTE | 2020-06-27 11:39 | W.HOLTRPT ---
Date of service: 06/27/20 Time of Service: 11:39 Holter Monitor Report Referring Provider:: Ezio Tello MD Indications:: CAD Holter Monitor Note: Patient was monitored for a period of 1 day and 22 hours. Rhythm throughout was sinus. Average heart rate was 60 bpm. Minimum was 44 and maximum 97 There were 8 isolated premature ventricular contractions. There were a total of 66 premature atrial contractions. There was no atrial fibrillation, heart block, or pauses greater than 2 seconds
== END 2020-06-24 02:05 ==
PROVIDERS: PCP Emergency Medicine; Visit Provider Internal Medicine Cardiovascular Disease
DX: I25.10 Atherosclerotic heart disease of native coronary artery without angina pectoris (principal)
CPT/HCPCS: 93225

== ENCOUNTER 2020-06-27 08:56 | Outpatient (CLI) | payer BC, SELFPAY | END 2020-06-27 09:16 | PROVIDERS: PCP Emergency Medicine; Visit Provider Emergency Medicine | DX: I25.10 Atherosclerotic heart disease of native coronary artery without angina pectoris (principal); I49.1 Atrial premature depolarization; I49.3 Ventricular premature depolarization | CPT/HCPCS: 93226 ==

== ENCOUNTER 2020-07-19 01:17 | Outpatient (CLI) | payer BC, SELFPAY ==
--- NOTE | 2020-07-19 07:15 | DI.US_ITS ---
APPROVED REPORT EXAM: Comprehensive 2D, Doppler, and color-flow Echocardiogram Patient Location: Out-Patient Numerical Control Machine Tool Operator: Verito Rico RDCS (AE) Indications: Murmur, Hypertension Other Information Study Quality: Adequate Conclusion Normal left ventricular wall thickness and chamber size. Estimated ejection fraction is 55 to 60%. There are no segmental wall motion abnormalities Normal right ventricular size and systolic function Both atria are normal in size There are no structural valvular abnormalities Mild mitral regurgitation Trace to mild tricuspid regurgitation with normal estimated right ventricular systolic pressure Trace physiologic pulmonic regurgitation Wall motion Left Ventricle The left ventricle is normal size. The left ventricular systolic function is normal. The left ventric ular ejection fraction is within the normal range. There is normal left ventricular wall thickness. T here is normal LV segmental wall motion. There is no ventricular septal defect visualized. LVEF is 55 -60%. Right Ventricle The right ventricle is normal size. The right ventricular systolic function is normal. The RVSP is 26 .2 mmHg. Atria The left atrium size is normal. The right atrium size is normal. The interatrial septum is intact wit h no evidence for an atrial septal defect. Aortic Valve The aortic valve is normal in structure. Aortic valve is trileaflet. There is no aortic valvular sten osis. No aortic regurgitation is present. Mitral Valve The mitral valve is normal in structure. No evidence of mitral valve stenosis. Mild mitral regurgitat ion. Tricuspid Valve The tricuspid valve is normal in structure. There is no tricuspid valve stenosis. Trace to mild tricu spid regurgitation. Pulmonic Valve The pulmonary valve is normal in structure. There is no pulmonic valvular stenosis. Trace pulmonic re gurgitation. Great Vessels The aortic root is normal in size. The ascending aorta is mildly dilated. Aortic arch is normal in ca liber. IVC is normal in size and collapses >50% with inspiration. Pericardium There is no pericardial effusion. 2D Dimensions IVSD d PLAX 1.01 cm M: 0.6-1.2 LV Vol A2C d MOD 126.8 mL LVPW d PLAX 1.03 cm M: 0.6 - 1.2 LV Vol A4C d MOD 134.2 mL LVID d PLAX 5.77 cm M: 4.2 - 5.8 LA vol/ BSA A2C s A-L 27.5 mL/m2 LVDs 4.00 cm M: 2.5 - 4.0 LA vol/ BSA A4C s A-L 29.1 mL/m2 Ao Root d 3.23 cm M: 3.1 - 3.7 LA Vol/ BSA Biplane s A-L 30.6 mL/m2 RA Area A4C 14.98 cm2 LA Area A4C s MOD 23.14 cm2 RA Vol/ BSA A4C s A-L 15.1 mL/m2 LA Area A2C s MOD 20.82 cm2 Ao Asc Diam d 3.61 cm M: 2.6 - 3.4 LV EF A4C MOD 55.5 % LV EF Teichholz 56.6 % LV EF A2C MOD 59.1 % LVEF (Sandy's) 55.92 % M: 52 - 72 LV EF Biplane MOD 55.9 % LV Volume 93.97 mL M: 62 - 150 SV 74.19 mL LV Volume Index 39.15 mL/m2 M: 34 - 74 SV Index 30.90 mL/m2 LV Vol Biplane MOD 132.7 mL FS 30.05 % M-Mode TAPSE 3.00 cm (M/F) >1.7 LV Diastology MV E' medial 0.132 (>0.07 m/s) E/A Ratio 1.5 LV E/e MED 7.00 (<14) MV E Vmax 0.92 (0.4-1.3 m/s) MV E' lateral 0.136 (>0.1 m/s) MV A Vmax 0.60 (0.4-1.3 m/s) LV E/e LAT 6.80 (<14) MV E/A Ratio 1.48 MV E/E' medial 7.00 MV E/E' lateral 6.81 Aortic Valve LVOT Area 3.55 cm2 AoV Area Vmax 2.74 cm2 LVOT Vmax 1.27 m/s AoV Area/ BSA (Vmax) 1.14 cm2/m2 LVOT Mean Bhavin. 0.82 m/s ALDO Mean Bhavin. 2.50 cm2 LVOT Peak Grad 6.5 mmHg ALDO Mean Bhavin. Index 1.04 cm2/m2 LVOT Mean Grad 3.2 mmHg LVOT VTI 0.286 m LVOT Diam s 2.10 cm AoV Vmax 1.65 m/s Velocity Ratio 0.76 AoV Mean Bhavin. 1.16 m/s AoV Peak Grad 10.9 mmHg LVOT SV 101.64 mL AoV Mean Grad 6.1 mmHg AoV VTI 0.350 m AoV Area VTI 2.90 cm2 AoV Area/ BSA (VTI) 1.21 cm/m2 Mitral Valve MV DT 211 (160-240 msec) MV PHT 61 msec MV Area PHT 3.59 cm2 MV VTI 0.389 m MV Area VTI 2.61 (4.0-6.0 cm2) Pulmonary Valve PV Vmax 1.49 (0.5-1.5 m/s) RVOT Peak Gr. 3.26 mmHg PV Peak Grad 8.8 mmHg RVOT Mean Gr. 1.75 mmHg PV Mean Grad 4.1 mmHg RVOT VTI 0.195 m PV VTI 0.299 m RVOT Vmax 0.90 m/s Tricuspid Valve TR Peak Grad 23.1 mmHg TR Vmax 2.41 m/s RA Pressure 3.00 mmHg RVSP (TR) 26.2 mmHg
== END 2020-07-19 01:37 ==
PROVIDERS: PCP Emergency Medicine; Visit Provider Internal Medicine Cardiovascular Disease
DX: I10 Essential (primary) hypertension (principal); I08.1 Rheumatic disorders of both mitral and tricuspid valves
CPT/HCPCS: 93306

== ENCOUNTER 2020-08-10 04:54 | Outpatient (CLI) | payer BC, SELFPAY ==
[2020-08-10 13:01] LABS: Abs Immature Grans 0.01 10^3/uL (0.0-0.06); Absolute Basophil Count 0.04 10^3/uL (0.0-0.2); Absolute Eosinophil Count 0.15 10^3/uL (0.0-0.7); Absolute Lymphocyte Count 1.34 10^3/uL (1.2-3.4); Absolute Monocyte Count 0.43 10^3/uL (0.1-0.8); Basophils % 0.8; Eosinophils % 2.8; HCT 38.2 % (40.0-50.0); HGB 13.1 g/dL (13.5-17.5); Immature Grans % 0.2; Lymphocytes % 25.4; MCHC 34.3 % (32.0-36.0); MCV 90.5 fL (80-95); MPV 10.3 fL (8.0-11.0); Monocytes % 8.2; Neutrophils % 62.6; Nucleated RBC 0 %; Platelet Count 259 10^3/uL (130-400); RBC 4.22 10^6/uL (4.36-5.78); RDW 12.2 % (11.8-14.1); RDW-SD 40.5 fL; WBC 5.27 10^3/uL (4.4-10.8)
[2020-08-10 13:28] LABS: ALT 30 U/L (16-63); AST 21 U/L (15-37); Albumin 3.6 g/dL (3.4-5.0); Alkaline Phosphatase 81 U/L (46-116); Anion Gap 8.4 mmol/L (3-11); BUN 19 mg/dL (7-18); Bilirubin, Total 0.5 mg/dL (0.2-1.0); CO2 25.6 mmol/L (21.0-32.0); CREATININE 1.08 mg/dL (0.70-1.30); Calcium 8.4 mg/dL (8.5-10.1); Chloride 102 mmol/L (98-107); Glucose 243 mg/dL (74-106); Potassium 4.5 mmol/L (3.5-5.1); Sodium 136 mmol/L (136-145); TSH 2.77 uIU/mL (0.36-3.74); Total Protein 6.2 g/dL (6.4-8.2)
[2020-08-10 13:34] LABS: Hemoglobin A1C 8.2 % (<5.7)
[2020-08-10 14:45] LABS: Calculated LDL 76 mg/dL (<100); Cholesterol 132 mg/dL (<200); HDL Cholesterol 40 mg/dL (40-60); Magnesium 1.8 mg/dL (1.8-2.4); Triglyceride 83 mg/dL (<150)
[2020-08-12 09:34] LABS: PSA, Screening 0.8 ng/mL (0-3.5)
[2020-08-24 17:28] LABS: IgA 217 mg/dL (61-356); Interpretation See Comments; Tissue Transglutaminase IgA 3.8 U/mL (<4.0)
== END 2020-08-10 05:14 ==
PROVIDERS: PCP Emergency Medicine; Visit Provider Internal Medicine Cardiovascular Disease
DX: I10 Essential (primary) hypertension (principal); E10.39 Type 1 diabetes mellitus with other diabetic ophthalmic complication; R14.0 Abdominal distension (gaseous); K59.00 Constipation, unspecified; Z12.5 Encounter for screening for malignant neoplasm of prostate
CPT/HCPCS: 36415; 80048; 80053; 80061; 82784; 83516; 84153; 83036; 83735; 84443; 85025

== ENCOUNTER 2020-10-09 10:16 | Emergency (ER) | payer BC, SELFPAY ==
[2020-10-09 10:20] VITALS: BP 144/46; PULSE 59; RESP 18; TEMP 36.4; O2SAT 98
--- NOTE | 2020-10-09 10:41 | ED.GENADUL_ITS ---
Discharge Plan Disposition Patient Disposition: HOME Condition: Improving Discharge Details Clinical Impression: Strain of thoracic back region Primary Care Provider: Clive Tobias ED Provider: Latonia Munson Home Meds and New Rx's Prescriptions: New methocarbamol 500 mg tablet 500 mg PO Q6H PRN (Reason: muscle spasm) Qty: 14 RF: 0 lidocaine [Lidoderm] 5 % adhesive patch,medicated 1 patch TP DAILY PRN (Reason: pain) Qty: 15 RF: 0 naproxen [Naprosyn] 500 mg tablet 500 mg PO BID PRN (Reason: pain) Qty: 14 RF: 0 No Action aspirin [Adult Low Dose Aspirin] 81 mg tablet,delayed release (DR/EC) 81 mg PO DAILY RF: 0 amlodipine 10 mg tablet 10 mg PO DAILY Qty: 90 RF: 4 spironolactone 25 mg tablet 25 mg PO DAILY Qty: 90 RF: 3 rosuvastatin 20 mg tablet 20 mg PO DAILY Qty: 90 RF: 3 metoprolol succinate [Toprol XL] 25 mg tablet extended release 24 hr 25 mg PO DAILY Qty: 30 RF: 3 (DME) insulin syringe-needle U-100 [Ultra-Thin II (Short) Ins Syr] 1 EACH syringe 1 ea Miscellaneous DAILY Qty: 100 RF: 6 (DME) blood-glucose meter [OneTouch Verio IQ Meter] misc See Dose Instructions .ROUTE .MEDSUPPLY Qty: 1 RF: 0 (DME) lancets [OneTouch Delica Lancets] 30 gauge misc See Dose Instructions .ROUTE .MEDSUPPLY Qty: 400 RF: 4 (DME) OneTouch Verio test strips Strip See Dose Instructions .ROUTE .MEDSUPPLY Qty: 400 RF: 4 insulin lispro [Humalog KwikPen Insulin] 100 unit/mL insulin pen 15 unit SC TID Qty: 15 RF: 12 omeprazole 20 mg capsule,delayed release(DR/EC) 20 mg PO DAILY Qty: 90 RF: 1 lisinopril 20 mg tablet 20 mg PO DAILY Qty: 90 RF: 3 Lantus U-100 Insulin 100 unit/mL solution 40 unit SC HS Qty: 30 RF: 3 hydrocortisone 2.5 % cream 1 applic TP BID PRNQty: 20 RF: 0 Discharge Instructions Instructions: Thoracic Back Strain (ED) Additional Instructions: Alternate ice and heat to the affected area(s) several times daily for 20 minutes at a time. Take the anti-inflammatory, muscle relaxer and lidoderm patch as needed and directed for pain. Follow-up with your primary care doctor in 1 week. Return to the emergency department with any worsening or new concerning symptoms such as fever, chest pain, shortness of breath, extremity weakness or numbness. Discharge Data Discharge Date/Time-TO BE ENTERED AT DEPARTURE: 10/09/20 12:33 Discharge Physician: Latonia Munson Medical Decision Making 55-year-old male with a history of obesity, hypertension, hyperlipidemia, di abetes presents for mid back pain that is worse with movement of his upper extremity since yesterday. Pain worse since yesterday after helping move furniture. There is minimal tenderness to palpation of his mid lower thoracic and right thoracic paraspinal region but area appears normal to inspection without cellulitis, trauma or rash. He is neurovascular intact. His lungs are clear. His abdomen is soft and nontender. He has no focal deficits. Suspect most likely musculoskeletal etiology, however considering patient's age and comorbidities, will obtain a chest x-ray to rule out any acute disease. Will place Lidoderm patch and give a dose of ibuprofen. Do not see indication for labs or additional imaging at this time. Imaging reviewed and negative. Patient reassessed and he admits to relief of pain and feels good to go home. We will send with Lidoderm patch and muscle relaxers. Advised to follow up with the primary care doctor for re-evaluation. Usual and customary return precautions given prior to discharge. Medical Records Medical records reviewed: Yes I reviewed the patient's medical records. Imaging Data Radiologic Study: Radiologist's impression: XR Chest, 2 Views Exam date and time: 10/09/2020 11:23 AM Age: 55 years old Clinical indication: Patient HX: Mid back pain. R/O widened mediastinum TECHNIQUE: Imaging protocol: XR of the chest Views: 2 views. COMPARISON: CR CHEST 2 VIEWS PA,LAT 10/08/2016 9:24 AM FINDINGS: Lungs: Unremarkable. No consolidation. Pleural space: Unremarkable. No pleural effusion. No pneumothorax. Apical pleural thickening left greater than right is stable. Heart/Mediastinum: Unremarkable. No cardiomegaly. No widening of the mediastinum. Bones/joints: Unremarkable for age. IMPRESSION: No acute findings. HPI General Mode of arrival: ambulatory . Date/Time Provider Initiated Documentation: 10/09/20 10:16 . Limitations to Documentation: no limitations . Information obtained by: patient . HPI Narrative: Patient is a 55-year-old male with a history of obesity, hypertension, hyperlipidemia, diabetes who presents for mid back pain that is worse with movement of his arms since yesterday. Patient states the pain started in the middle the day but then became worse after helping his mom move furniture. He took Tylenol this morning without relief. He states the pain feels somewhat better at this time but is still worse with movement of his arms. He denies any worsening of pain with movement of his head. He denies any fever, cough, chest pain, shortness of breath, abdominal pain, leg pain, weakness or numbness in his arms. Related Data Home Medications Medication Instructions Recorded Confirmed insulin syringe-needle U-100 #100 syringe 09/10/13 07/26/20 [Ultra-Thin II (Short) Ins Syr] blood-glucose meter #1 each 12/26/18 07/26/20 lancets 30 gauge #400 each 12/26/18 07/26/20 blood sugar diagnostic #400 each 01/08/20 07/26/20 insulin lispro 100 unit/mL 15 unit SC TID #15 ml 03/16/20 10/09/20 subcutaneous pen hydrocortisone 1 applic TP BID PRN #20 gm 04/02/20 10/09/20 omeprazole 20 mg capsule,delayed 20 mg PO DAILY #90 cap 05/13/20 10/09/20 release metoprolol succinate 25 mg 25 mg PO DAILY #30 tab 06/17/20 10/09/20 tablet,extended release 24 hr lisinopril 20 mg tablet 20 mg PO DAILY #90 tab 07/19/20 10/09/20 aspirin 81 mg tablet,delayed 81 mg PO DAILY 07/26/20 10/09/20 release amlodipine 10 mg tablet 10 mg PO DAILY #90 tab 09/14/20 10/09/20 rosuvastatin 20 mg tablet 20 mg PO DAILY #90 tab 09/14/20 10/09/20 spironolactone 25 mg tablet 25 mg PO DAILY #90 tab 09/14/20 10/09/20 insulin glargine 100 unit/mL 40 unit SC HS #30 ml 09/19/20 10/09/20 subcutaneous solution lidocaine [Lidoderm] 1 patch TP DAILY PRN #15 each 10/09/20 methocarbamol 500 mg PO Q6H PRN #14 tab 10/09/20 naproxen [Naprosyn] 500 mg PO BID PRN #14 tab 10/09/20 Previous Rx's Medication Instructions Recorded blood-glucose meter #1 each 12/26/18 lancets 30 gauge #400 each 12/26/18 blood sugar diagnostic #400 each 01/08/20 insulin lispro 100 unit/mL 15 unit SC TID #15 ml 03/16/20 subcutaneous pen hydrocortisone 1 applic TP BID PRN #20 gm 04/02/20 omeprazole 20 mg capsule,delayed 20 mg PO DAILY #90 cap 05/13/20 release metoprolol succinate 25 mg 25 mg PO DAILY #30 tab 06/17/20 tablet,extended release 24 hr lisinopril 20 mg tablet 20 mg PO DAILY #90 tab 07/19/20 amlodipine 10 mg tablet 10 mg PO DAILY #90 tab 09/14/20 rosuvastatin 20 mg tablet 20 mg PO DAILY #90 tab 09/14/20 spironolactone 25 mg tablet 25 mg PO DAILY #90 tab 09/14/20 insulin glargine 100 unit/mL 40 unit SC HS #30 ml 09/19/20 subcutaneous solution lidocaine [Lidoderm] 1 patch TP DAILY PRN #15 each 10/09/20 methocarbamol 500 mg PO Q6H PRN #14 tab 10/09/20 naproxen [Naprosyn] 500 mg PO BID PRN #14 tab 10/09/20 Allergies Allergy/AdvReac Type Severity Reaction Status Date / Time HORNET, WHITE FACED Allergy Intermediate HIVES, Uncoded 10/09/20 10:24 NUMBNESS, TINGLING General Stated Complaint: Nk/Back Pain CHUCK: 3 Review of Systems All systems reviewed & are unremarkable except as noted in HPI and below Constitutional Constitutional: Reports as per HPI, Denies chills and Denies fever(s) Eyes Eyes: Denies blurry vision ENT Ears, Nose, Mouth, and Throat: Denies dizziness, Denies sore throat and Denies throat swelling Cardiovascular Cardiovascular: Denies chest pain and Denies dyspnea Respiratory Respiratory: Denies cough and Denies dyspnea Gastrointestinal Gastrointestinal: Denies abdominal pain, Denies diarrhea and Denies vomiting Genitourinary Genitourinary: Denies hematuria and Denies dysuria Musculoskeletal Musculoskeletal: Reports back pain and Denies numbness Integumentary/Breasts Skin/Breast: Denies lesions and Denies rash Neurologic Neurologic: Denies dizziness, Denies localized weakness and Denies numbness Allergic/Immunologic Allergic/Immunologic: Denies throat swelling [facility] Medical History Colon polyp, hyperplastic (04/18/16) repeat q 5years per [facility] Coronary artery disease Essential hypertension (08/04/13) Hyperlipidemia (02/05/13) Male erectile disorder (09/10/13) Non-proliferative diabetic retinopathy (01/04/14) Right shoulder pain 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 Son No problems noted. Daughter No problems noted. Daughter Depression Social History Smoking/Tobacco Use Status: Never Smoking risk assessment performed?: Yes Alcohol Intake: current Alcohol Intake frequency: a few times a week Drug use: Never Substance use type: does not use Caregiver/Support person: No Household members: spouse and children Housing: house Do you need help understanding health information?: Never Pets and animals: Yes Pets and animals: cat(s) Sexually active: Yes Do you think of yourself as: straight/heterosexual What is your relationship status?: How often do you talk on the phone with friends or family?: once per week How often do you get together with friends or relatives?: once per week How often do you attend oriental orthodox or restorationist services?: decline to answer Do you belong to any clubs or organized social groups?: decline to answer Panel score (0-1 are the most socially isolated patients): 1 Frequency: does not exercise Mounika/Latter-Day: No preference Special mounika needs: No Seatbelt use: always Drive intox or ride w/intox truck driver instructor: No Do you feel safe at home: Yes Do you feel safe in your relationship?: Yes Exam Const General: cooperative, healthy appearing and no acute distress HENMT Head: normal to inspection Face and sinus: normal facial exam Eyes General: appearance normal, both eyes and all related structures EOM: EOM intact bilaterally Neck Neck: normal visual inspection and No submandibular swelling Lymphatic: no lymphadenopathy noted Chest Chest: normal inspection of the chest and no tenderness Resp Effort & Inspection: normal respiratory effort and able to speak in complete sentences Auscultation: clear to auscultation bilaterally Cardio Rate: regular rate Rhythm: regular rhythm GI Inspection: normal to inspection Palpation: soft, not firm, not rigid and nontender Auscultation: normal bowel sounds Back/Spine/Pelvis Thoracic/Lumbar Spine: thoracic and lumbar spine normal to inspection Pelvis: no pain with anterior-posterior compression Back/spine/pelvis image: 1. Localized area of pain that is minimally reproducible with palpation but mainly reproducible with movement of his upper extremities. There is no erythema, ecchymosis, crepitus, rash or step-off. 2. There is some area of minimal tenderness below and medial to the right scapula within the thoracic paraspinal region. There is no erythema, ecchymosis, crepitus or rash. Skin General skin exam: no rashes or lesions noted Neuro General: patient alert, patient awake and patient oriented x3 Cognition: normal cognition Speech: speech normal Motor: muscle tone normal throughout Sensory Exam: no sensory deficits noted Extrem General: normal to inspection, full ROM, capillary refill normal, no calf tenderness bilaterally and no edema Psych Appearance: grossly normal Mental Status: mental status grossly normal Speech and Movement: speech and movement normal Affect: normal affect Course Vital Signs Vital signs: Vital Signs Temperature 97.5 F L 10/09/20 10:20 Pulse 59 L 10/09/20 10:20 Respiratory Rate 18 10/09/20 10:20 Blood Pressure 144/46 H 10/09/20 10:20 Pulse Oximetry 98 10/09/20 10:20 Temperature 97.5 F L 10/09/20 10:20 Temperature Source Skin 10/09/20 10:20 Pulse 59 L 10/09/20 10:20 Respiratory Rate 18 10/09/20 10:20 Respiratory Effort Non-Labored 10/09/20 10:27 Blood Pressure 144/46 H 10/09/20 10:20 Blood Pressure Position Sitting 10/09/20 10:20 Pulse Oximetry 98 10/09/20 10:20 Oxygen Delivery Method Room Air 10/09/20 10:20 Oxygen Flow Rate 0 10/09/20 10:20 Pain Level 10 10/09/20 10:20
[2020-10-09] MEDS: Ibuprofen 600 MG TAB PO (11:14)
[2020-10-09] MEDS: Lidocaine 5% Patch 1 PATCH TP (11:14)
--- NOTE | 2020-10-09 11:36 | DI.RAD_ITS ---
EXAM: XR CHEST 2V PA LATERAL CLINICAL HISTORY: mid back pain, r/o widened mediastinum, acute dz TECHNIQUE: 2D digital imaging was performed. COMPARISON: No exams were available for comparison FINDINGS: MEDIASTINUM: Normal. No widening of the mediastinum. HEART: Normal. PULMONARY VASCULATURE: Normal. LUNGS: Clear. PLEURAL SPACE: No pleural effusion or pneumothorax. BONE:Within normal limits for the patient's age. OTHER FINDINGS:Normal. IMPRESSION: No acute pulmonary findings. DATA REPOSITORY: RADIATION DOSE DELIVERED:
--- NOTE | 2020-10-09 11:50 | DI.VRAD_ITS ---
PROCEDURE INFORMATION: Exam: XR Chest, 2 Views Exam date and time: 10/09/2020 11:23 AM Age: 55 years old Clinical indication: Patient HX: Mid back pain. R/O widened mediastinum TECHNIQUE: Imaging protocol: XR of the chest Views: 2 views. COMPARISON: CR CHEST 2 VIEWS PA,LAT 10/08/2016 9:24 AM FINDINGS: Lungs: Unremarkable. No consolidation. Pleural space: Unremarkable. No pleural effusion. No pneumothorax. Apical pleural thickening left greater than right is stable. Heart/Mediastinum: Unremarkable. No cardiomegaly. No widening of the mediastinum. Bones/joints: Unremarkable for age. IMPRESSION: No acute findings. Dictated and Authenticated by: Jhonatan Hollins MD. Ordering:JENNY Lincoln MD
[2020-10-09 12:28] VITALS: BP 115/47; PULSE 56; RESP 18; TEMP 36.5; O2SAT 98
== END 2020-10-09 12:33 | disposition home or self-care (01) ==
PROVIDERS: Emergency Provider Physician Assistant; PCP Emergency Medicine
DX: S39.012A Strain of muscle, fascia and tendon of lower back, initial encounter (principal); X50.0XXA Overexertion from strenuous movement or load, initial encounter; I10 Essential (primary) hypertension; E10.9 Type 1 diabetes mellitus without complications
CPT/HCPCS: 99283; 71046

== ENCOUNTER 2020-11-25 02:38 | Outpatient (CLI) | payer BC, SELFPAY ==
[2020-11-26 14:08] LABS: COVID-19 RT-PCR UVMMC Result Negative (Negative)
== END 2020-11-25 02:39 | disposition home or self-care (01) ==
LOC: LBO 02:38
PROVIDERS: PCP Emergency Medicine; Visit Provider Emergency Medicine
DX: Z20.822 Contact with and (suspected) exposure to COVID-19 (principal)
CPT/HCPCS: U0003

== ENCOUNTER 2020-12-29 02:01 | Outpatient (CLI) | payer BC, SELFPAY ==
[2020-12-29 11:37] LABS: Anion Gap 7.6 mmol/L (3-11); BUN 18 mg/dL (7-18); CO2 29.4 mmol/L (21.0-32.0); CREATININE 1.2 mg/dL (0.70-1.30); Calcium 8.9 mg/dL (8.5-10.1); Calculated LDL 87 mg/dL (<100); Chloride 103 mmol/L (98-107); Cholesterol 143 mg/dL (<200); Glucose 188 mg/dL (74-106); HDL Cholesterol 48 mg/dL (40-60); Potassium 4.3 mmol/L (3.5-5.1); Sodium 140 mmol/L (136-145); Triglyceride 43 mg/dL (<150)
[2020-12-29 11:41] LABS: Hemoglobin A1C 7.8 % (<5.7)
== END 2020-12-29 02:02 | disposition home or self-care (01) ==
LOC: LOS 02:01
PROVIDERS: PCP Emergency Medicine; Visit Provider Emergency Medicine
DX: I10 Essential (primary) hypertension (principal); E78.5 Hyperlipidemia, unspecified; I25.10 Atherosclerotic heart disease of native coronary artery without angina pectoris; E11.9 Type 2 diabetes mellitus without complications
CPT/HCPCS: 36415; 80048; 80061; 83036

== ENCOUNTER 2021-06-08 13:36 | Outpatient (CLI) | payer BC, SELFPAY ==
[2021-06-08 12:52] LABS: Anion Gap 8.9 mmol/L (3-11); BUN 13 mg/dL (7-18); CO2 25.1 mmol/L (21.0-32.0); Calcium 8.5 mg/dL (8.5-10.1); Chloride 108 mmol/L (98-107); Glucose 144 mg/dL (74-106); Sodium 142 mmol/L (136-145)
[2021-06-08 12:58] LABS: Hemoglobin A1C 8.5 % (<5.7)
== END 2021-06-08 13:37 | disposition home or self-care (01) ==
LOC: LOS 13:41
PROVIDERS: PCP Emergency Medicine; Visit Provider Emergency Medicine
DX: E11.9 Type 2 diabetes mellitus without complications (principal); I10 Essential (primary) hypertension
CPT/HCPCS: 36415; 80048; 83036

== ENCOUNTER 2021-10-05 04:26 | Outpatient (CLI) | payer BC, SELFPAY ==
[2021-10-05 15:56] LABS: Hemoglobin A1C 8.4 % (<5.7)
[2021-10-05 16:28] LABS: Anion Gap 7.4 mmol/L (3-11); BUN 13 mg/dL (7-18); CO2 27.6 mmol/L (21.0-32.0); Calcium 8.6 mg/dL (8.5-10.1); Chloride 101 mmol/L (98-107); Glucose 194 mg/dL (74-106); Potassium 4.2 mmol/L (3.5-5.1); Sodium 136 mmol/L (136-145)
== END 2021-10-05 04:27 | disposition home or self-care (01) ==
LOC: LBO 04:27
PROVIDERS: PCP Emergency Medicine; Visit Provider Emergency Medicine
DX: I10 Essential (primary) hypertension (principal); E11.9 Type 2 diabetes mellitus without complications
CPT/HCPCS: 36415; 80048; 83036

== ENCOUNTER 2022-01-09 02:20 | Outpatient (CLI) | payer BC, SELFPAY ==
[2022-01-09 07:51] LABS: HCT 41.2 % (40.0-50.0); HGB 13.9 g/dL (13.5-17.5); MCH 31.1 pg (27.0-33.0); MCHC 33.7 % (32.0-36.0); MCV 92.2 fL (80-95); Platelet Count 284 10^3/uL (130-400); RBC 4.47 10^6/uL (4.36-5.78); RDW 12.2 % (11.8-14.1); RDW-SD 41.9 fL; WBC 5.92 10^3/uL (4.4-10.8)
[2022-01-09 08:27] LABS: Hemoglobin A1C 8.3 % (<5.7)
[2022-01-09 08:33] LABS: COMMENT (LAB VIEW ONLY) 95.94 mg/dL; Microalb ug/mg Crea 3.8 ug/mg Cr
[2022-01-09 08:35] LABS: ALT 31 U/L (16-63); AST 28 U/L (15-37); Alkaline Phosphatase 77 U/L (46-116); Anion Gap 6.8 mmol/L (3-11); BUN 14 mg/dL (7-18); Bilirubin, Total 0.4 mg/dL (0.2-1.0); CO2 30.2 mmol/L (21.0-32.0); Calcium 8.6 mg/dL (8.5-10.1); Calculated LDL 72 mg/dL (<100); Chloride 105 mmol/L (98-107); Cholesterol 123 mg/dL (<200); Glucose 54 mg/dL (74-106); HDL Cholesterol 46 mg/dL (40-60); Potassium 4.1 mmol/L (3.5-5.1); Sodium 142 mmol/L (136-145); TSH (W/Ref FT4) 3.23 uIU/mL (0.36-3.74); Total Protein 6.6 g/dL (6.4-8.2); Triglyceride 29 mg/dL (<150)
[2022-01-10 10:45] LABS: Hepatitis C Ab w Rflx HCV PCR Negative (Negative)
[2022-01-10 11:01] LABS: HIV-1/2 Ag & Ab Screen Negative (Negative)
== END 2022-01-09 02:21 | disposition home or self-care (01) ==
LOC: LBO 02:20
PROVIDERS: PCP Nurse Practitioner Family; Visit Provider Family Medicine
DX: E10.39 Type 1 diabetes mellitus with other diabetic ophthalmic complication (principal); R53.83 Other fatigue; E78.5 Hyperlipidemia, unspecified; I10 Essential (primary) hypertension; Z11.59 Encounter for screening for other viral diseases; Z11.4 Encounter for screening for human immunodeficiency virus [HIV]; Z13.6 Encounter for screening for cardiovascular disorders; Z12.5 Encounter for screening for malignant neoplasm of prostate
CPT/HCPCS: 36415; 80053; 80061; 84153; 85027; 86803; 87389; 82043; 82570; 83036; 84443

== ENCOUNTER 2022-08-17 01:30 | Outpatient (CLI) | payer BC, SELFPAY ==
[2022-08-17 12:30] LABS: Hemoglobin A1C 8.3 % (<5.7)
[2022-08-17 12:50] LABS: CREATININE 1.1 mg/dL (0.70-1.30); Calculated LDL 85 mg/dL (<100); Cholesterol 149 mg/dL (<200); Estimated GFR 77.33 (mL/min/1.73m2); HDL Cholesterol 57 mg/dL (40-60); Potassium 4.6 mmol/L (3.5-5.1); Triglyceride 38 mg/dL (<150)
== END 2022-08-17 01:31 | disposition home or self-care (01) ==
LOC: LBO 01:30
PROVIDERS: PCP Nurse Practitioner Family; Visit Provider Nurse Practitioner Family
DX: E10.39 Type 1 diabetes mellitus with other diabetic ophthalmic complication (principal); E78.5 Hyperlipidemia, unspecified; I10 Essential (primary) hypertension
CPT/HCPCS: 36415; 80061; 82565; 83036; 84132

== ENCOUNTER 2022-09-28 11:19 | Outpatient (CLI) | payer BC, SELFPAY ==
--- NOTE | 2022-09-28 11:15 | RT.EKG_ITS ---
APPROVED REPORT Exam: Resting ECG Reason for Exam: cardiac evaluation Patient Location: O HR:49 bpm ECG Measurements Heart Rate 49 AXIS VA 197 P 36 QRSd 87 QRS 16 QT 435 T 31 QTc 393 Conclusion Sinus bradycardia...rate< 50 Borderline first-degree AV block
== END 2022-09-28 11:20 | disposition home or self-care (01) ==
LOC: DI.CARD 11:20
PROVIDERS: PCP Nurse Practitioner Family; Visit Provider Internal Medicine Cardiovascular Disease
DX: I10 Essential (primary) hypertension (principal); I25.10 Atherosclerotic heart disease of native coronary artery without angina pectoris; R94.31 Abnormal electrocardiogram [ECG] [EKG]; R00.1 Bradycardia, unspecified
CPT/HCPCS: 93010

== ENCOUNTER 2023-06-11 08:20 | Outpatient (CLI) | payer BC, SELFPAY ==
[2023-06-11 12:31] LABS: BUN 14 mg/dL (7-18); CREATININE 1.1 mg/dL (0.70-1.30); Estimated GFR 77.33 (mL/min/1.73m2)
[2023-06-11 13:12] LABS: COMMENT (LAB VIEW ONLY) 39.78 mg/dL
== END 2023-06-11 08:21 | disposition home or self-care (01) ==
LOC: LOS 08:20
PROVIDERS: PCP Nurse Practitioner Family; Visit Provider Nurse Practitioner Family
DX: E10.39 Type 1 diabetes mellitus with other diabetic ophthalmic complication (principal); I10 Essential (primary) hypertension; E78.5 Hyperlipidemia, unspecified
CPT/HCPCS: 36415; 84520; 82043; 82565; 82570

== ENCOUNTER 2024-11-13 09:13 | Outpatient (CLI) | payer BC, SELFPAY ==
--- NOTE | 2024-11-13 09:00 | RT.EKG_ITS ---
APPROVED REPORT Exam: Resting ECG Reason for Exam: hx CAD Patient Location: O HR:53 bpm ECG Measurements Heart Rate 53 AXIS LA 221 P -11 QRSd 86 QRS 19 QT 410 T 44 QTc 385 Conclusion Sinus rhythm...normal P axis, V-rate 50- 99 Prolonged LA interval...LA >220, V-rate 50- 90 Low voltage, precordial leads...precordial leads <1.0mV
== END 2024-11-13 09:14 | disposition home or self-care (01) ==
LOC: DI.CARD 09:14
PROVIDERS: PCP Nurse Practitioner Family; Visit Provider Internal Medicine Cardiovascular Disease
DX: I25.10 Atherosclerotic heart disease of native coronary artery without angina pectoris (principal); Z98.890 Other specified postprocedural states
CPT/HCPCS: 93010

== ENCOUNTER 2025-06-30 12:09 | Outpatient (CLI) | payer BC, SELFPAY ==
[2025-06-30 12:52] LABS: Hemoglobin A1C 8.3 % (<5.7)
[2025-06-30 13:17] LABS: COMMENT (LAB VIEW ONLY) 30.37 mg/dL; Microalb ug/mg Crea 7.6 ug/mg Cr
[2025-06-30 13:23] LABS: ALT 29 U/L (16-63); AST 14 U/L (15-37); Albumin 3.5 g/dL (3.4-5.0); Alkaline Phosphatase 67 U/L (46-116); Anion Gap 7.7 mmol/L (3-11); BUN 16 mg/dL (7-18); Bilirubin, Total 0.4 mg/dL (0.2-1.0); CO2 27.3 mmol/L (21.0-32.0); Calcium 8.7 mg/dL (8.5-10.1); Calculated LDL 82 mg/dL (<100); Chloride 104 mmol/L (98-107); Cholesterol 139 mg/dL (<200); Estimated GFR 85.10 (mL/min/1.73m2); Glucose 197 mg/dL (74-106); HDL Cholesterol 44 mg/dL (>or=40); Potassium 4.3 mmol/L (3.5-5.1); Sodium 139 mmol/L (136-145); Total Protein 6.5 g/dL (6.4-8.2); Triglyceride 66 mg/dL (<150)
[2025-06-30 13:37] LABS: TSH (W/Ref FT4) 3.22 uIU/mL (0.36-3.74)
[2025-06-30 23:32] LABS: PSA, Screening 1.3 ng/mL (<=4.5)
== END 2025-06-30 12:10 | disposition home or self-care (01) ==
LOC: LBO 12:09
PROVIDERS: PCP Nurse Practitioner Family; Visit Provider Registered Nurse Critical Care Medicine
DX: Z12.5 Encounter for screening for malignant neoplasm of prostate (principal); Z13.220 Encounter for screening for lipoid disorders; I10 Essential (primary) hypertension
CPT/HCPCS: 36415; 80053; 80061; 84153; 82043; 82570; 83036; 84443